=== PATIENT | male | born 1980 | race Hispanic/Latino ===

== ENCOUNTER 2016-12-31 17:55 | Emergency (ER) | payer SELFPAY ==
[~2016-12-31] VITALS: Ht 157.5 cm; Wt 81.9 kg
[~2016-12-31 17:55] MED LIST: AMOX500C2 PO; CEPH500C PO; CIPR500T78 PO; CPR500T PO; HYDR-3816 PO; HYDR1TAB PO; HYDR1TAB8 OP; HYOS0.3710 PO; IBUP-1780 PO; LORA10TA7 PO; METR500T PO; NAPR250T PO; OLOP2.5D OP; PRD20T PO; RABE20TA PO; TRM50T PO
[2016-12-31] MEDS ORDERED: RX-NITROGLYCERIN 0.4 MG TAB BTL 25'S SL PRN (18:15)
[2016-12-31] MEDS ORDERED: KETOROLAC 30 MG/ML VIAL IVP ONE (18:15)
[2016-12-31] MEDS ORDERED: NITROGLYCERIN 2% OINT 1 GM UNIT DOSE PACKET TOP ONE (18:15)
[2016-12-31] MEDS ORDERED: ASPIRIN 81 MG CHEW (CHILDREN'S ASA) PO ONE (18:15)
[2016-12-31 18:20] LABS: BASOPHILS # (AUTO) 0.1 10^3/uL (0.0-0.1); BASOPHILS % (AUTO) 0 % (0-10); EOSINOPHILS # (AUTO) 0.3 10^3/uL (0.0-0.3); EOSINOPHILS % (AUTO) 2 % (0-10); LYMPHOCYTES # (AUTO) 3.4 X 10^3 (1.0-4.0); LYMPHOCYTES % (AUTO) 28 % (12-44); MEAN CORPUSCULAR HEMOGLOBIN 31 PG (25-34); MEAN CORPUSCULAR HGB CONC 35 G/DL (32-36); MEAN CORPUSCULAR VOLUME 88 FL (80-99); MEAN PLATELET VOLUME 9.8 FL (7.4-10.4); MONOCYTES % (AUTO) 8 % (0-12); NEUTROPHILS # (AUTO) 7.4 X 10^3 (1.8-7.8); NEUTROPHILS % (AUTO) 61 % (42-75); PLATELET COUNT 360 10^3/uL (130-400); RED BLOOD COUNT 5.12 10^6/uL (4.35-5.85); RED CELL DISTRIBUTION WIDTH 12.3 % (10.0-14.5); WHITE BLOOD COUNT 12.1 10^3/uL (4.3-11.0)
--- NOTE | 2016-12-31 18:31 | ED Chest Pain ---
General Chief Complaint: Chest Pain Stated Complaint: L SIDE CHEST PAIN Nursing Triage Note: C/O CHEST PAIN STARTING 3 HOURS [employer], PATIENT REPORTS WAS SITTING DOWN WHEN STARTING. DENIES N/V/D OR SOA. 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 AND PT FIXATED ON PT'S "BACK PAIN' THAT HAS BEEN GOING ON FOR OVER A MONTH , HOWEVER BEGAN WHILE SITTING WORKED ALL DAY AND DID NOT HAVE ANY PROBLEMS NO INJURY NOTHING WORSENS OR IMPROVES PAIN NO SHORTNESS OF BREATH NO SWEATS NO SWELLING IN LEGS/FEET OR PAIN IN CALVES NO NAUSEA/VOMITING NO PARESTHESIAS OR MOTOR DEFICITS NO COUGH, FEVER OR RECENT ILLNESS NO HISTORY OF SIMILAR HAS NOT TAKEN ANYTHING FOR PAIN AT ANY TIME PCP: [facility] [place] Allergies and Home Medications Allergies Coded Allergies: No Known Drug Allergies (Unverified , 04/20/09) Home Medications Meloxicam 15 Mg Tablet, 15 MG PO DAILY, #10 Prescribed by: DANIELLA DENT on 12/31/161951 Review of Systems Constitutional: no symptoms reported EENTM: No Symptoms Reported Respiratory: No Symptoms Reported Cardiovascular: See HPI, Chest Pain, Denies Edema, Denies Irregular Heart Rate , Denies Lightheadedness, Denies Palpitations, Denies Syncope Gastrointestinal: No Symptoms Reported, Denies Abdominal Pain, Denies Nausea, Denies Vomiting Genitourinary: No Symptoms Reported Musculoskeletal: see HPI Skin: no symptoms reported, No rash Psychiatric/Neurological: No Symptoms Reported Endocrine: No Symptoms Reported Hematologic/Lymphatic: No Symptoms Reported Past Odxytas-Scpfls-Kdohxv Hx Patient Social History Alcohol Use: Regular Use (ON WEEKENDS) Alcohol Beverage of Choice: Beer Recreational Drug Use: No Smoking Status: Never a Smoker Recent Foreign Travel: No Contact w/Someone Who Travel: No Recent Infectious Disease Expo: No Recent Hopitalizations: No Seasonal Allergies Seasonal Allergies: No Surgeries History of Surgeries: Yes (COLONOSCOPIES) Respiratory History of Respiratory Disorde: No Cardiovascular History of Cardiac Disorders: No Neurological History of Neurological Disord: No Reproductive System Hx Reproductive Disorders: No Gastrointestinal History of Gastrointestinal Di: Yes (DIVERTICULITIS SEVERAL TIMES, WITH MICROPERFORATION--NO SURGERY REQUIRED; H.PYLORI--DX/TX 09/2009) Gastrointestinal Disorders: Diverticulosis Musculoskeletal History of Musculoskeletal Dis: No Endocrine History of Endocrine Disorders: No Cancer History of Cancer: No Psychosocial History of Psychiatric Problem: No Integumentary History of Skin or Integumenta: Yes (ALLERGY TO POISON MAYA) Blood Transfusions History of Blood Disorders: No Adverse Reaction to a Blood Tr: No Family Medical History Significant Family History: No Pertinent Family Hx Family Medial History: Patient reports no known family medical history. Physical Exam Vital Signs Vital Sign - Last 12Hours 12/31/16 12/31/16 18:01 20:11 Temp 98.2 Pulse 98 Resp 18 B/P (MAP) 165/115 Pulse Ox 99 O2 Delivery Room Air Capillary Refill : Less Than 3 Seconds General Appearance: WD/WN, Anxious, Other (ANXIOUS,MILD HYPERVENTILATION, KEEPS EYES TIGHTLY SHUT,CLENCHING TEETH--DOES NOT MAKE EYE CONTACT) HEENT: PERRL/EOMI Neck: Full Range of Motion, Normal Inspection, Non Tender, Supple Respiratory: Normal Breath Sounds, No Accessory Muscle Use, No Respiratory Distress, Other (MARKED CHEST WALL TENDERNESS--ENTIRE LEFT ANTERIOR CHEST, LEFT LATERAL AND POSTERIOR-LOWER RIBS--PALPATION DRAMATICALLY REPRODUCES PAIN . ) Cardiovascular: Regular Rate, Rhythm, No Edema, No JVD, No Murmur, Normal Peripheral Pulses Gastrointestinal: Normal Bowel Sounds, No Organomegaly, No Pulsatile Mass, Non Tender, Soft, Other (NO FLANK TENDERNESS) Extremity: Normal Capillary Refill, Normal Inspection, Normal Range of Motion, Non Tender, No Calf Tenderness Neurologic/Psychiatric: Alert, Oriented x3, No Motor/Sensory Deficits, production generalist II- XII Norm as Tested Skin: Normal Color, Warm/Dry, No Rash Progress/Results/Core Measures Results/Orders Lab Results Laboratory Tests Test 12/31/16 18:05 12/31/16 19:55 Range/Units White Blood Count 12.1 H 4.3-11.0 10^3/uL Red Blood Count 5.12 4.35-5.85 10^6/uL Hemoglobin 15.6 13.3-17.7 G/DL Hematocrit 45 40-54 % Mean Corpuscular Volume 88 80-99 FL Mean Corpuscular Hemoglobin 31 25-34 PG Mean Corpuscular Hemoglobin Concent 35 32-36 G/DL Red Cell Distribution Width 12.3 10.0-14.5 % Platelet Count 360 130-400 10^3/uL Mean Platelet Volume 9.8 7.4-10.4 FL Neutrophils (%) (Auto) 61 42-75 % Lymphocytes (%) (Auto) 28 12-44 % Monocytes (%) (Auto) 8 0-12 % Eosinophils (%) (Auto) 2 0-10 % Basophils (%) (Auto) 0 0-10 % Neutrophils # (Auto) 7.4 1.8-7.8 X 10^3 Lymphocytes # (Auto) 3.4 1.0-4.0 X 10^3 Monocytes # (Auto) 1.0 0.0-1.0 X 10^3 Eosinophils # (Auto) 0.3 0.0-0.3 10^3/uL Basophils # (Auto) 0.1 0.0-0.1 10^3/uL Prothrombin Time 14.8 H 12.2-14.7 SEC INR Comment 1.2 0.8-1.4 Activated Partial Thromboplast Time 33 24-35 SEC Sodium Level 139 135-145 MMOL/L Potassium Level 3.3 L 3.6-5.0 MMOL/L Chloride Level 102 98-107 MMOL/L Carbon Dioxide Level 26 21-32 MMOL/L Anion Gap 11 5-14 MMOL/L Blood Urea Nitrogen 11 7-18 MG/DL Creatinine 0.84 0.60-1.30 MG/DL Estimat Glomerular Filtration Rate > 60 BUN/Creatinine Ratio 13 Glucose Level 96 70-105 MG/DL Calcium Level 9.4 8.5-10.1 MG/DL Magnesium Level 2.1 1.8-2.4 MG/DL Total Bilirubin 0.5 0.1-1.0 MG/DL Aspartate Amino Transf (AST/SGOT) 41 H 5-34 U/L Alanine Aminotransferase (ALT/SGPT) 77 H 0-55 U/L Alkaline Phosphatase 110 40-136 U/L Total Creatine Kinase 165 30-200 U/L Creatine Kinase MB 1.2 <6.6 NG/ML Troponin I < 0.30 <0.30 NG/ML B-Type Natriuretic Peptide < 10.0 <100.0 PG/ML Total Protein 7.9 6.4-8.2 GM/DL Albumin 4.6 H 3.2-4.5 GM/DL Amylase Level 47 25-125 U/L Lipase 16 8-78 U/L Urine Color YELLOW Urine Clarity CLEAR Urine pH 7 5-9 Urine Specific [place] 1.010 L 1.016-1.022 Urine Protein NEGATIVE NEGATIVE Urine Glucose (UA) NEGATIVE NEGATIVE Urine Ketones NEGATIVE NEGATIVE Urine Nitrite NEGATIVE NEGATIVE Urine Bilirubin NEGATIVE NEGATIVE Urine Urobilinogen NORMAL NORMAL MG/DL Urine Leukocyte Esterase NEGATIVE NEGATIVE Urine RBC (Auto) NEGATIVE NEGATIVE Urine RBC NONE /HPF Urine WBC NONE /HPF Urine Squamous Epithelial Cells RARE /HPF Urine Crystals NONE /LPF Urine Bacteria NEGATIVE /HPF Urine Casts NONE /LPF Urine Mucus NEGATIVE /LPF Urine Culture Indicated NO Urine Opiates Screen NEGATIVE NEGATIVE Urine Oxycodone Screen NEGATIVE NEGATIVE Urine Methadone Screen NEGATIVE NEGATIVE Urine Propoxyphene Screen NEGATIVE NEGATIVE Urine Barbiturates Screen NEGATIVE NEGATIVE Ur Tricyclic Antidepressants Screen NEGATIVE NEGATIVE Urine Phencyclidine Screen NEGATIVE NEGATIVE Urine Amphetamines Screen NEGATIVE NEGATIVE Urine Methamphetamines Screen NEGATIVE NEGATIVE Urine Benzodiazepines Screen NEGATIVE NEGATIVE Urine Cocaine Screen NEGATIVE NEGATIVE Urine Cannabinoids Screen NEGATIVE NEGATIVE My Orders Orders - DANIELLA DENT DO Amylase (12/31/16 18:01) Cbc With Automated Diff (12/31/16 18:) Comprehensive Metabolic Panel (12/31/16 18:01) Creatine Kinase (12/31/16 18:01) Creatine Kinase Mb (12/31/16 18:01) Lipase (12/31/16 18:01) Partial Thromboplastin Time (12/31/16 18:) Protime With Inr (12/31/16 18:01) Troponin I (12/31/16 18:01) Chest 1 View, Ap/Pa Only (12/31/16 18:01) O2 (12/31/16 18:01) Aspirin Chewable Tablet (Baby Aspirin Ch (12/31/16 18:15) Rx-Nitroglycerin Sl Tabs (Rx-Nitrostat S (12/31/16 18:15) BNP (12/31/16 18:01) Monitor-Rhythm Ecg Trace Only (12/31/16 18:) Magnesium (12/31/16 18:01) Nitroglycerin Ointment (Nitrobid Ointme (12/31/16 18:15) Ketorolac Injection (Toradol Injection) (12/31/16 18:15) Ct Angio Chest W (12/31/16 18:53) Iohexol Injection (Omnipaque 350 Mg/Ml 1 (12/31/16 19:00) Ns (Ivpb) (Sodium Chloride 0.9% Ivpb Bag (12/31/16 19:00) Hepatitis Panel Acute (12/31/16 19:10) Drug Screen Stat (Urine) (12/31/16 19:55) Ua Culture If Indicated (12/31/16 19:55) Medications Given in ED Current Medications Medications Dose Ordered Sig/Asmita Route Start Time Stop Time Status Last Admin Dose Admin Aspirin 324 mg ONCE ONCE PO 12/31/16 18:15 12/31/16 18:16 DC 12/31/16 18:19 324 MG Iohexol 150 ml ONCE ONCE IV 12/31/16 19:00 12/31/16 19:03 DC 12/31/16 19:13 125 ML Ketorolac Tromethamine 30 mg ONCE ONCE IVP 12/31/16 18:15 12/31/16 18:16 DC 12/31/16 18:19 30 MG Sodium Chloride 100 ml ONCE ONCE IV 12/31/16 19:00 12/31/16 19:03 DC 12/31/16 19:13 100 ML Vital Signs/I&O Vital Sign - Last 12Hours 12/31/16 12/31/16 12/31/16 18:01 20:11 20:25 Temp 98.2 Pulse 98 75 Resp 18 14 B/P (MAP) 165/115 Pulse Ox 99 99 O2 Delivery Room Air Blood Pressure Mean: 132 Progress Note : Progress Note BP DOWN TO 140/90'S SHORTLY AFTER ARRIVAL WITHOUT TREATMENT, SO NITROPASTE HELD GIVEN TORADOL AND CHEST PAIN HAS RESOLVED PT SLEPT FOR REMAINDER OF ER STAY 1954--REVIEWING ALL TEST RESULTS, AND PT'S STATES HIS PAIN IS GONE BUT NOW WANTS URINE CHECKED FOR UTI--STATES WHEN HE DRINKS WATER, IT MAKES HIM FEEL LIKE HE HAS A UTI--CANNOT DESCRIBE SYMPTOMS. WAS UNABLE TO GIVE URINE SAMPLE ON ARRIVAL, WILLING TO GIVE ONE NOW. ECG Initial ECG Impression Time: 17:58 Initial ECG Rate: 98 Initial ECG Rhythm: Normal Sinus Initial ECG Comparisson: No Previous ECG Available Diagnostic Imaging Comments CXR--NO ACUTE PROCESS CT CHEST ANGIOGRAM--NO ACUTE PROCESS PER RADIOLOGIST REPORTS @ 1949 Reviewed: Reviewed by Me Departure Impression Impression: Primary Impression: Chest wall pain Additional Impression: Labile hypertension Disposition: HOME, SELF-CARE Condition: Improved Departure-Patient Inst. Referrals: [facility] Patient Instructions: Chest Pain (DC), Chest Pain That Is Not Caused by the Heart (DC), Controlling Your Blood Pressure Through Lifestyle, Costochondritis ( DC), DASH Diet, Heart Healthy Diet, High Blood Pressure (DC) Add. Discharge Instructions: HOME [facility] FOR FURTHER CARE RETURN TO ER IF SYMPTOMS WORSEN All discharge instructions reviewed with patient and/or family. Voiced understanding. Scripts Meloxicam (Mobic) 15 Mg Tablet 15 MG PO DAILY, #10 TAB Prov: DANIELLA DENT DO 12/31/16 Images Torso/Trunk 1 - Severe, Tenderness 2 - Severe, Tenderness DANIELLA DENT DO Dec 31, 2016 18:31
[2016-12-31 18:32] LABS: INR 1.2 (0.8-1.4); PROTHROMBIN TIME PATIENT 14.8 SEC (12.2-14.7)
[2016-12-31 18:42] LABS: ALANINE AMINOTRANSFERASE 77 U/L (0-55); ALBUMIN 4.6 GM/DL (3.2-4.5); AMYLASE 47 U/L (25-125); ANION GAP 11 MMOL/L (5-14); ASPARTATE AMINO TRANSFERASE 41 U/L (5-34); BILIRUBIN,TOTAL 0.5 MG/DL (0.1-1.0); BLOOD UREA NITROGEN 11 MG/DL (7-18); BUN/CREATININE RATIO 13; CALCIUM 9.4 MG/DL (8.5-10.1); CARBON DIOXIDE 26 MMOL/L (21-32); CHLORIDE 102 MMOL/L (98-107); CREATINE KINASE 165 U/L (30-200); CREATININE SERUM 0.84 MG/DL (0.60-1.30); GFR ESTIMATED > 60; GLUCOSE 96 MG/DL (70-105); LIPASE 16 U/L (8-78); MAGNESIUM 2.1 MG/DL (1.8-2.4); POTASSIUM 3.3 MMOL/L (3.6-5.0); SODIUM 139 MMOL/L (135-145); TOTAL PROTEIN 7.9 GM/DL (6.4-8.2)
[2016-12-31 18:48] LABS: TROPONIN I < 0.30 NG/ML (<0.30)
--- NOTE | 2016-12-31 18:53 | Diagnostic Imaging Report ---
INDICATION: Chest pain, hypertension. COMPARISON: 12/06/2015. FINDINGS: Single view chest demonstrates clear lungs bilaterally. The heart is normal. No pneumothorax. Osseous structures normal. IMPRESSION: Negative chest. Dictated by: Dictated on workstation # [id number]
[2016-12-31] MEDS ORDERED: IOHEXOL 350 MG/ML 150 ML (OMNIPAQUE 350) VIAL IV ONE (19:00)
[2016-12-31] MEDS ORDERED: NS 100 ML (IVPB) BAG IV ONE (19:00)
--- NOTE | 2016-12-31 19:32 | Diagnostic Imaging Report ---
PROCEDURE: CT angiography of the chest with contrast. TECHNIQUE: Multiple contiguous axial images were obtained through the chest after uneventful bolus administration of intravenous contrast. Reconstructed CTA MIP acquisitions were also performed. INDICATION: Left-sided chest pain. COMPARISON: None. FINDINGS: The heart and aorta are normal. There is no pulmonary embolism. No aortic dissection or aneurysm is seen. The lungs are clear. No pneumothorax, effusion or infiltrate is identified. There is no lymphadenopathy. No pleural or pericardial effusion is present. Osseous structures are age-appropriate. IMPRESSION: Negative CT angio chest. Dictated by: Dictated on workstation # [id number]
[2016-12-31] MEDS ORDERED: MELO15TA14 PO (19:52)
[2016-12-31 20:06] LABS: BILIRUBIN,URINE NEGATIVE (NEGATIVE); KETONES,URINE NEGATIVE (NEGATIVE); LEUKOCYTE ESTERASE ,URINE NEGATIVE (NEGATIVE); NITRITE,URINE NEGATIVE (NEGATIVE); PH,URINE 7 (5-9); PROTEIN,URINE NEGATIVE (NEGATIVE); UROBILINOGEN,URINE NORMAL (NORMAL)
[2016-12-31 20:15] LABS: SQUAMOUS EPITHELIAL CELL,UR RARE /HPF
[2016-12-31 20:25] VITALS: BP 137/96
== END 2016-12-31 20:27 | disposition home or self-care (01) ==
LOC: EDUNIT# 17:55 → ER 17:57
DX: R07.89 Other chest pain (principal); R03.0 Elevated blood-pressure reading, without diagnosis of hypertension; Z87.19 Personal history of other diseases of the digestive system
CPT/HCPCS: 36415; 71010; 71275; 80053; 80074; 80306; 81000; 82150; 82550; 82553; 83690; 83735; 83880; 84484; 85025; 85610; 85730; 93005; 93041

== ENCOUNTER 2018-11-14 00:08 | Inpatient (IN) | payer SELFPAY ==
--- NOTE | 2018-11-13 22:25 | NUR ---
Dr. Floyd notified that morphine caused patient to have severe headache and did not want to take it again. New order rec to discontinue and continue with Fentanyl for pain management.
[2018-11-14] VITALS (7 sets, daily range): BP systolic 117–138; BP diastolic 73–78
[~2018-11-14] VITALS: Ht 170.2 cm; Wt 76.5 kg
[~2018-11-14 00:08] MED LIST changes: +HYDR-34 PO; -HYDR-3816 PO; +MELO15TA14 PO
[2018-11-14] MEDS ORDERED: NS IV 1000 ML 1,000 ML IV STA (00:37)
[2018-11-14] MEDS ORDERED: fentaNYL INJECTION 100 MCG/2 ML AMP IVP STA (00:37)
[2018-11-14] MEDS ORDERED: KETOROLAC 30 MG/ML VIAL IVP STA (00:37)
[2018-11-14 00:45] LABS: BASOPHILS % (AUTO) 0 % (0-10); EOSINOPHILS # (AUTO) 0.1 10^3/uL (0.0-0.3); EOSINOPHILS % (AUTO) 0 % (0-10); HEMATOCRIT 44 % (40-54); HEMOGLOBIN 15.4 G/DL (13.3-17.7); LYMPHOCYTES # (AUTO) 1.5 X 10^3 (1.0-4.0); LYMPHOCYTES % (AUTO) 9 % (12-44); MEAN CORPUSCULAR HEMOGLOBIN 30 PG (25-34); MEAN CORPUSCULAR HGB CONC 35 G/DL (32-36); MEAN CORPUSCULAR VOLUME 87 FL (80-99); MEAN PLATELET VOLUME 10.5 FL (7.4-10.4); MONOCYTES # (AUTO) 1.4 X 10^3 (0.0-1.0); MONOCYTES % (AUTO) 9 % (0-12); NEUTROPHILS % (AUTO) 82 % (42-75); PLATELET COUNT 272 10^3/uL (130-400); WHITE BLOOD COUNT 15.9 10^3/uL (4.3-11.0)
[2018-11-14] MEDS ORDERED: ONDANSETRON 4 MG/2 ML (SDV) Z0FRAN IVP ONE (00:45)
[2018-11-14 00:56] LABS: ALANINE AMINOTRANSFERASE 35 U/L (0-55); ALBUMIN 4.5 GM/DL (3.2-4.5); ALKALINE PHOSPHATASE 90 U/L (40-136); BILIRUBIN,TOTAL 0.8 MG/DL (0.1-1.0); BUN/CREATININE RATIO 13; CALCIUM 9.4 MG/DL (8.5-10.1); CARBON DIOXIDE 20 MMOL/L (21-32); CHLORIDE 103 MMOL/L (98-107); CREATININE SERUM 0.77 MG/DL (0.60-1.30); GFR ESTIMATED > 60; GLUCOSE 118 MG/DL (70-105); MAGNESIUM 2.5 MG/DL (1.8-2.4); POTASSIUM 3.9 MMOL/L (3.6-5.0); SODIUM 135 MMOL/L (135-145); TOTAL PROTEIN 7.9 GM/DL (6.4-8.2)
--- NOTE | 2018-11-14 01:00 | ED Abdominal Pain ---
General Chief Complaint: Abdominal/GI Problems Stated Complaint: ABD PAIN Nursing Triage Note: Pt ambulates to ED RM 5 with complaints of suprapubic pain, tender to touch, that radiates to his right flank. Pt reports this started yesterday 11/12/18 and hasn't taken any meds to relieve the pain prior to arrival. Pt reports nausea but denies vomiting. Pt states he hasn't been able to urinate or have a BM today because "it's too painful". Pt denies any past medical Hx other than having a colon issue 4 years ago. Sepsis Screen: No Definite Risk Source of Information: Patient Exam Limitations: No Limitations History of Present Illness Date Seen by Provider: Nov 14, 2018 Time Seen by Provider: 00:30 Initial Comments Here with complaint of lower abdominal pain that started yesterday. States that it was on and off and today has been much worse and quite severe this evening. Does have history of diverticulitis. Last ate at 3 PM and drink a little of that time. Otherwise has not had anything to eat or drink. Has not been unable to have a bowel movement or urinate recently because of the pain. Hospitalized previously for diverticulitis. Timing/Duration: 1-2 Days Severity/Quality: Moderate, Severe, Sharp Location: RLQ, LLQ Radiation: Back Activities at Onset: None Modifying Factors: Worsens With Defecating, Worsens With Eating, Worsens With Movement Associated Symptoms: Back Pain; No Fever/Chills, No Nausea/Vomiting, No Shortness of Air, No Weakness Allergies and Home Medications Allergies Coded Allergies: No Known Drug Allergies (Unverified , 04/20/09) Home Medications Meloxicam 15 Mg Tablet, 15 MG PO DAILY Prescribed by: DANIELLA DENT on 12/31/161951 Patient Home Medication List Home Medication List Reviewed: Yes Review of Systems Review of Systems Constitutional: see HPI; No chills, No fever EENTM: No Symptoms Reported Respiratory: No Symptoms Reported Cardiovascular: No Symptoms Reported Gastrointestinal: See HPI, Abdominal Pain, Nausea; Denies Vomiting Genitourinary: Denies Frequency; Pain Musculoskeletal: back pain; No muscle pain Skin: no symptoms reported Psychiatric/Neurological: No Symptoms Reported All Other Systems Reviewed Negative Unless Noted: Yes Past Dinyhoa-Bxwfaa-Eolpow Hx Past Med/Social Hx: Reviewed Nursing Past Med/Soc Hx Patient Social History Alcohol Use: Denies Use Alcohol Beverage of Choice: Beer Recreational Drug Use: No Smoking Status: Never a Smoker Recent Foreign Travel: No Contact w/Someone Who Travel: No Recent Infectious Disease Expo: No Recent Hopitalizations: No Physical Abuse: No Sexual Abuse: No Mistreated: No Fear: No Seasonal Allergies Seasonal Allergies: No Past Medical History Surgeries: Yes (COLONOSCOPIES) Respiratory: No Cardiac: No Neurological: No Reproductive Disorders: No Genitourinary: No Gastrointestinal: Yes Diverticulosis Musculoskeletal: No Endocrine: No HEENT: No Cancer: No Psychosocial: No Integumentary: Yes (ALLERGY TO POISON MAYA) Blood Disorders: No Adverse Reaction/Blood Tranf: No Family Medical History Reviewed Nursing Family Hx Patient reports no known family medical history. No Pertinent Family Hx Physical Exam Vital Signs Vital Signs - First Documented 11/14/18 00:12 Temp 99.3 Pulse 107 Resp 20 B/P (MAP) 145/95 (112) Pulse Ox 97 O2 Delivery Room Air Capillary Refill : Less Than 3 Seconds Height/Weight/BMI Height: 5'8.00" Weight: 190lbs. 8.0oz. 86.447632xh; 32.92 BMI Method:Stated General Appearance: WD/WN, no apparent distress HEENT: PERRL/EOMI, pharynx normal Neck: full range of motion, supple Respiratory: lungs clear, normal breath sounds Cardiovascular: regular rate, rhythm, no murmur Gastrointestinal: abnormal bowel sounds (hypoactive), guarding, tenderness (bilateral lower quadrants) Extremities: non-tender, normal inspection Back: no CVA tenderness, no vertebral tenderness, other (low back pain bilateral) Neurologic/Psychiatric: alert, oriented x 3 Skin: normal color, warm/dry Progress/Results/Core Measures Results/Orders Lab Results Laboratory Tests Test 11/14/18 00:14 11/14/18 02:15 Range/Units White Blood Count 15.9 H 4.3-11.0 10^3/uL Red Blood Count 5.08 4.35-5.85 10^6/uL Hemoglobin 15.4 13.3-17.7 G/DL Hematocrit 44 40-54 % Mean Corpuscular Volume 87 80-99 FL Mean Corpuscular Hemoglobin 30 25-34 PG Mean Corpuscular Hemoglobin Concent 35 32-36 G/DL Red Cell Distribution Width 12.0 10.0-14.5 % Platelet Count 272 130-400 10^3/uL Mean Platelet Volume 10.5 H 7.4-10.4 FL Neutrophils (%) (Auto) 82 H 42-75 % Lymphocytes (%) (Auto) 9 L 12-44 % Monocytes (%) (Auto) 9 0-12 % Eosinophils (%) (Auto) 0 0-10 % Basophils (%) (Auto) 0 0-10 % Neutrophils # (Auto) 13.0 H 1.8-7.8 X 10^3 Lymphocytes # (Auto) 1.5 1.0-4.0 X 10^3 Monocytes # (Auto) 1.4 H 0.0-1.0 X 10^3 Eosinophils # (Auto) 0.1 0.0-0.3 10^3/uL Basophils # (Auto) 0.0 0.0-0.1 10^3/uL Sodium Level 135 135-145 MMOL/L Potassium Level 3.9 3.6-5.0 MMOL/L Chloride Level 103 98-107 MMOL/L Carbon Dioxide Level 20 L 21-32 MMOL/L Anion Gap 12 5-14 MMOL/L Blood Urea Nitrogen 10 7-18 MG/DL Creatinine 0.77 0.60-1.30 MG/DL Estimat Glomerular Filtration Rate > 60 BUN/Creatinine Ratio 13 Glucose Level 118 H 70-105 MG/DL Calcium Level 9.4 8.5-10.1 MG/DL Corrected Calcium 9.0 8.5-10.1 MG/DL Magnesium Level 2.5 H 1.8-2.4 MG/DL Total Bilirubin 0.8 0.1-1.0 MG/DL Aspartate Amino Transf (AST/SGOT) 22 5-34 U/L Alanine Aminotransferase (ALT/SGPT) 35 0-55 U/L Alkaline Phosphatase 90 40-136 U/L C-Reactive Protein High Sensitivity 1.38 H 0.00-0.50 MG/DL Total Protein 7.9 6.4-8.2 GM/DL Albumin 4.5 3.2-4.5 GM/DL Urine Color YELLOW Urine Clarity CLEAR Urine pH 7 5-9 Urine Specific [place] 1.005 L 1.016-1.022 Urine Protein NEGATIVE NEGATIVE Urine Glucose (UA) NEGATIVE NEGATIVE Urine Ketones NEGATIVE NEGATIVE Urine Nitrite NEGATIVE NEGATIVE Urine Bilirubin NEGATIVE NEGATIVE Urine Urobilinogen NORMAL NORMAL MG/DL Urine Leukocyte Esterase NEGATIVE NEGATIVE Urine RBC (Auto) NEGATIVE NEGATIVE Urine RBC NONE /HPF Urine WBC NONE /HPF Urine Squamous Epithelial Cells RARE /HPF Urine Crystals NONE /LPF Urine Bacteria TRACE /HPF Urine Casts NONE /LPF Urine Mucus NEGATIVE /LPF Urine Culture Indicated NO My Orders Orders - JOHN DURAND MD Fentanyl Injection (Sublimaze Injection (11/14/18 00:37) Ketorolac Injection (Toradol Injection) (11/14/18 00:37) Cbc With Automated Diff (11/14/18 00:37) Comprehensive Metabolic Panel (11/14/18 00:37) Hs C Reactive Protein (11/14/18 00:37) Magnesium (11/14/18 00:37) Ondansetron Injection (Zofran Injectio (11/14/18 00:45) Ns Iv 1000 Ml (Sodium Chloride 0.9%) (11/14/18 00:37) Ed Iv/Invasive Line Start (11/14/18 00:37) Manual Differential (11/14/18 00:14) Ct Abdomen/Pelvis W (11/14/18 01:37) Iohexol Injection (Omnipaque 350 Mg/Ml 1 (11/14/18 02:15) Received Contrast (Hold Metformin- Contr (11/14/18 02:15) Ns (Ivpb) (Sodium Chloride 0.9% Ivpb Bag (11/14/18 02:15) Ua Culture If Indicated (11/14/18 02:30) Medications Given in ED Current Medications Medications Dose Ordered Sig/Asmita Route Start Time Stop Time Status Last Admin Dose Admin Iohexol 100 ml ONCE ONCE IV 11/14/18 02:15 11/14/18 02:16 DC 11/14/18 02:11 100 ML Ondansetron HCl 4 mg ONCE ONCE IVP 11/14/18 00:45 11/14/18 00:46 DC 11/14/18 00:49 4 MG Sodium Chloride 100 ml ONCE ONCE IV 11/14/18 02:15 11/14/18 02:16 DC 11/14/18 02:11 80 ML Vital Signs/I&O 11/14/18 00:12 Temp 99.3 Pulse 107 Resp 20 B/P (MAP) 145/95 (112) Pulse Ox 97 O2 Delivery Room Air Blood Pressure Mean: 112 Progress Progress Note : Progress Note Seen and evaluated. IV, labs, UA, normal saline 1 L bolus, Zofran 4 mg IV, fentanyl 50 g IV and Toradol [address] abdomen and pelvis. Monitor patient. 0305: CT scan shows acute diverticulitis. Given patient's pain, elevated white count and history of diverticulitis requiring extended hospital stay, we will admit the patient to the hospital. Blood cultures and lactic acid ordered. Rocephin 1 g IV now and we will continue Rocephin and Flagyl. Consult Dr. Floyd the morning. Yoni concerns discussed with patient who agrees with plan. Diagnostic Imaging Diagonstic Imaging: CT Plain Films/CT/US/NM/MRI: abdomen, pelvis Comments Evidence of sigmoid diverticulitis. No abscess, perforation or bowel obstruction. No hydronephrosis or nephrolithiasis. Reviewed: [facility]ed [facility], Reviewed by Me Departure Communication (Admissions) Time/Spoke to Admitting Phy: 03:05 Impression Primary Impression: Diverticulitis of intestine Qualified Codes: K57.32 - Diverticulitis of large intestine without p erforation or abscess without bleeding Disposition: ADMITTED INPATIENT Condition: Stable Admissions Decision to Admit Reason: Admit from ER (General) Decision to Admit/Date: Nov 14, 2018 Time/Decision to Admit Time: 03:05 Departure-Patient Inst. Referrals: NO,LOCAL PHYSICIAN (PCP/Family) Primary Care Physician JOHN DURAND MD Nov 14, 2018 01:00
[2018-11-14] MEDS ORDERED: IOHEXOL 350 MG/ML 100 ML (OMNIPAQUE 350) VIAL IV ONE (02:15)
[2018-11-14] MEDS ORDERED: NS 100 ML (IVPB) BAG IV ONE (02:15)
[2018-11-14] MEDS ORDERED: HOLD METFORMIN - RECEIVED CONTRAST 20 ML VIAL IV SCH (02:15)
[2018-11-14 02:36] LABS: BILIRUBIN,URINE NEGATIVE (NEGATIVE); CLARITY,URINE CLEAR; COLOR,URINE YELLOW; GLUCOSE, URINE (UA) NEGATIVE (NEGATIVE); KETONES,URINE NEGATIVE (NEGATIVE); LEUKOCYTE ESTERASE ,URINE NEGATIVE (NEGATIVE); NITRITE,URINE NEGATIVE (NEGATIVE); PH,URINE 7 (5-9); PROTEIN,URINE NEGATIVE (NEGATIVE); UROBILINOGEN,URINE NORMAL (NORMAL)
[2018-11-14 02:45] LABS: BACTERIA,URINE TRACE /HPF; SQUAMOUS EPITHELIAL CELL,UR RARE /HPF
[2018-11-14] MEDS ORDERED: cefTRIAXone FOR IV USE 1,000 MG in WATER (STERILE) FOR INJECTION 10 ML IV ONE (03:15)
--- NOTE | 2018-11-14 04:02 | NUR ---
ANTIONE GARZA admitted to room 431-1, with an admitting diagnosis of DIVERTICULITIS , on 11/14/18 from ED via , accompanied by STAFF .ANTIONE GARZA introduced to surroundings, call light, bed controls, phone, TV, temperature control, lights, meal times, smoking policy, visitor policy, side rail policy, bathrooms and showers. Patient Rights given to patient in the handbook.ANTIONE GARZA verbalizes understanding that [facility] is not responsible for the loss or damage to any personal effects or valuables that are kept in the patients posession during their hospitalization.
[2018-11-14] MEDS ORDERED: NS IV 1000 ML 1,000 ML ONE (04:04)
[2018-11-14 04:24] LABS: LYMPHOCYTES % (MANUAL) 12 %; MONOCYTES % (MANUAL) 6 %; NEUTROPHILS % (MANUAL) 82 %
[2018-11-14] MEDS: NS IV 1000 ML 1,000 ML IV SCH ×4 (04:30→22:32)
[2018-11-14] MEDS ORDERED: ONDANSETRON 4 MG/2 ML (SDV) Z0FRAN IV PRN (05:30)
[2018-11-14] MEDS: metroNIDAZOLE 500 MG/100 ML IVPB (PRE-MIX) IV SCH ×3 (06:33→17:19)
--- NOTE | 2018-11-14 06:37 | Diagnostic Imaging Report ---
PROCEDURE: CT abdomen and pelvis with contrast. TECHNIQUE: Multiple contiguous axial images were obtained through the abdomen and pelvis after administration of intravenous contrast. Auto Exposure Controls were utilized during the CT exam to meet ALARA standards for radiation dose reduction. INDICATION: Flank pain. COMPARISON: 08/11/2013 FINDINGS: Mild subpleural scarring and/or atelectasis within the lung bases. The liver, spleen, adrenal glands, pancreas, and gallbladder are unremarkable. The kidneys are unremarkable. No aneurysmal dilatation of abdominal aorta. The urinary bladder is unremarkable. Significant mural thickening is noted within the proximal sigmoid colon with adjacent fat stranding. No adjacent focal fluid collection. Colonic diverticulosis. The appendix is unremarkable. No bowel obstruction or pneumatosis. Tiny fat-containing umbilical hernia. No significant adenopathy, free air, or free fluid within abdomen or pelvis. No acute osseous abnormality. IMPRESSION: Findings consistent with diverticulitis of the proximal sigmoid colon. No evidence of abscess formation or perforation. Underlying malignancy at this location cannot be completely excluded. Otherwise, essentially unremarkable. Agree with preliminary interpretation. Dictated by: Dictated on workstation # [id number]
[2018-11-14] MEDS: fentaNYL INJECTION 100 MCG/2 ML AMP IV PRN ×3 (06:55→20:14)
[2018-11-14] MEDS: KETOROLAC 30 MG/ML VIAL IV PRN ×2 (10:14→20:10)
--- NOTE | 2018-11-14 10:31 | Consultation - Surgery ---
MICHAEL NAM,MED STUDENT 11/14/18 1031: History of Present Illness History of Present Illness Patient Consulted On(wil/time) 11/14/18 10:26 Date Seen by Provider: Nov 14, 2018 Time Seen by Provider: 09:39 History of Present Illness Pt complains of LLQ pain beginning yesterday, likely secondary to diverticulitis as he has had this before. He complains of intermittent abdominal pain for 4-5 years now. Pain rated as 5/10 right now, and improves with pain medication. No family at bedside. Pt seen under supervision of Dr. Floyd Allergies and Home Medications Allergies Coded Allergies: No Known Drug Allergies (Unverified , 04/20/09) Home Medications No Active Prescriptions or Reported Meds Past Gvgxfyc-Mbcmfe-Eoxrye Hx Patient Social History Alcohol Use: Denies Use Recreational Drug Use: No Smoking Status: Never a Smoker Recent Foreign Travel: No Contact w/Someone Who Travel: No Recent Infectious Disease Expo: No Recent Hopitalizations: No Seasonal Allergies Seasonal Allergies: No Surgeries History of Surgeries: Yes (COLONOSCOPIES) Respiratory History of Respiratory Disorde: No Cardiovascular History of Cardiac Disorders: No Neurological History of Neurological Disord: No Reproductive System Hx Reproductive Disorders: No Genitourinary History of Genitourinary Disor: No Gastrointestinal History of Gastrointestinal Di: Yes Gastrointestinal Disorders: Diverticulosis Musculoskeletal History of Musculoskeletal Dis: No Endocrine History of Endocrine Disorders: No HEENT History of HEENT Disorders: No Cancer History of Cancer: No Psychosocial History of Psychiatric Problem: No Integumentary History of Skin or Integumenta: Yes (ALLERGY TO POISON MAYA) Blood Transfusions History of Blood Disorders: No Adverse Reaction to a Blood Tr: No Family Medical History Significant Family History: No Pertinent Family Hx Family Medial History: Patient reports no known family medical history. Review of Systems-General Constitutional: no symptoms reported Gastrointestinal: LLQ Physical Exam-General Problems Physical Exam Vital Signs Vital Signs - First Documented 11/14/18 00:12 Temp 99.3 Pulse 107 Resp 20 B/P (MAP) 145/95 (112) Pulse Ox 97 O2 Delivery Room Air Capillary Refill : Less Than 3 Seconds General Appearance: mild distress HEENT: PERRL/EOMI Respiratory: chest non-tender Cardiovascular: no edema Gastrointestinal: tenderness (LLQ tenderness to palpation) Neurologic/Psychiatric: alert Skin: warm/dry Data Review Labs Laboratory Tests 11/14/18 00:14: White Blood Count 15.9H, Red Blood Count 5.08, Hemoglobin 15.4, Hematocrit 44, Mean Corpuscular Volume 87, Mean Corpuscular Hemoglobin 30, Mean Corpuscular Hemoglobin Concent 35, Red Cell Distribution Width 12.0, Platelet Count 272, Mean Platelet Volume 10.5H, Neutrophils (%) (Auto) 82H, Lymphocytes (%) (Auto) 9L, Monocytes (%) (Auto) 9, Eosinophils (%) (Auto) 0, Basophils (%) (Auto) 0, Neutrophils # (Auto) 13.0H, Lymphocytes # (Auto) 1.5, Monocytes # (Auto) 1.4H, Eosinophils # (Auto) 0.1, Basophils # (Auto) 0.0, Neutrophils % (Manual) 82, Lymphocytes % (Manual) 12, Monocytes % (Manual) 6, Sodium Level 135, Potassium Level 3.9, Chloride Level 103, Carbon Dioxide Level 20L, Anion Gap 12, Blood Urea Nitrogen 10, Creatinine 0.77, Estimat Glomerular Filtration Rate > 60, BUN/Creatinine Ratio 13, Glucose Level 118H, Calcium Level 9.4, Corrected Calcium 9.0, Magnesium Level 2.5H, Total Bilirubin 0.8, Aspartate Amino Transf (AST/SGOT) 22, Alanine Aminotransferase (ALT/SGPT) 35, Alkaline Phosphatase 90, C-Reactive Protein High Sensitivity 1.38H, Total Protein 7.9, Albumin 4.5 11/14/18 02:15: Urine Color YELLOW, Urine Clarity CLEAR, Urine pH 7, Urine Specific [place] 1.005L, Urine Protein NEGATIVE, Urine Glucose (UA) NEGATIVE, Urine Ketones NEGATIVE, Urine Nitrite NEGATIVE, Urine Bilirubin NEGATIVE, Urine Urobilinogen NORMAL, Urine Leukocyte Esterase NEGATIVE, Urine RBC (Auto) NEGATIVE, Urine RBC NONE, Urine WBC NONE, Urine Squamous Epithelial Cells RARE, Urine Crystals NONE, Urine Bacteria TRACE, Urine Casts NONE, Urine Mucus NEGATIVE, Urine Culture Indicated NO 11/14/18 03:09: Lactic Acid Level 1.56 Assessment/Plan Assessment/Plan Assessment/Plan Diverticulitis. Continue clear liquid diet and antibiotics. Repeat labs. Recommend colonoscopy 6 weeks after diverticulitis resolves. No surgical intervention indicated at this time. Continue conservative management Diagnosis/Problems Diagnosis/Problems (1) Diverticulitis of intestine Status: Acute Qualifiers: Qualified Codes: K57.32 - Diverticulitis of large intestine without perforation or abscess without bleeding Clinical Quality Measures DVT/VTE Risk/Contraindication: Risk Factor Score Per Nursin RFS Level Per Nursing on Admit: 1=Low/No VTE PPX HEAVEN FLOYD DO 11/14/18 1507: History of Present Illness History of Present Illness History of Present Illness LLQ abd pain started yesterday. History of diverticulitis about 4-5 years ago. Patient pain worse with movement. Better with pain medication. Currently 08/22. Sharp in nature. No radiation of pain. Denies n/v fever sweats chills shortness of breath or chest pain at this time. Ct scan reviewed consistent with diverticulitis no perforation of sigmoid colon. Allergies and Home Medications Allergies Coded Allergies: No Known Drug Allergies (Unverified , 04/20/09) Home Medications No Active Prescriptions or Reported Meds Patient Home Medication List Home Medication List Reviewed: Yes Past Horkifw-Diynce-Xcyvyb Hx Family Medical History Family Medial History: Patient reports no known family medical history. Review of Systems-General EENTM: no symptoms reported Respiratory: no symptoms reported Cardiovascular: no symptoms reported Gastrointestinal: see HPI Genitourinary: no symptoms reported Musculoskeletal: no symptoms reported Skin: no symptoms reported Psychiatric/Neurological: No Symptoms Reported Physical Exam-General Problems Physical Exam General Appearance: no apparent distress HEENT: PERRL/EOMI Neck: non-tender, full range of motion, supple Respiratory: no respiratory distress, no accessory muscle use Cardiovascular: regular rate, rhythm Gastrointestinal: soft, tenderness (LLQ tenderness to palpation) Rectal: deferred Back: no CVA tenderness, no vertebral tenderness Extremities: non-tender, normal inspection Neurologic/Psychiatric: cvicu rn II-XII nml as tested, no motor/sensory deficits, alert, normal mood/affect, oriented x 3 Skin: warm/dry Lymphatic: no adenopathy Assessment/Plan Assessment/Plan Assessment/Plan LLq abdominal pain Diverticulitis Leukocytosis IV ABX Clear liquids repeat labs in am conservative management colonoscopy as above Supervisory-Addendum Brief Verification & Attestation Time: Verification & Attestat.: 15:08 Participated in pt care: history, MDM, physical Personally performed: exam, history, MDM, supervision of care Care discussed with: Medical Student Procedures: n/a Results interpretation: Verified all documentation Verification and Attestation of Medical Student E/M Service A medical student performed and documented this service in my presence. I reviewed and verified all information documented by the medical student and made modifications to such information, when appropriate. I personally performed the physical exam and medical decision making. Heaven Floyd, Nov 14, 2018,15:08 MICHAEL NAM,MED STUDENT Nov 14, 2018 10:31 HEAVEN FLOYD DO Nov 14, 2018 15:07
--- NOTE | 2018-11-14 12:08 | History & Physical-Hospitalist ---
HERNANDO HUNT,MED STUDENT 11/14/18 12:07pm: History of Present Illness HPI/Chief Complaint Patient is a 38 y/o HM that presented to the ER with abdominal pain and nausea. Pain is described as sharp and with onset yesterday afternoon and localized to LLQ and LRQ with no radiation. Pain improves with rest and pain medication and is made worse by movement and compression. Pain was rated was 10/10 but has improved to 1/10 with pain meds. Pt also complains of lower back pain that improves with rest and dysuria. Previous history of diverticulitis treated 5yrs ago at [facility] Date Seen 11/14/18 Time Seen by a Provider: 13:38 Attending Physician Sanju Caballero MD PCP No,Local Physician Referring Physician Date of Admission Nov 14, 2018 at 03:08 Home Medications & Allergies Home Medications Reviewed patient Home Medication Reconciliation performed by pharmacy medication reconciliations auto glass technician and/or nursing. Patients Allergies have been reviewed. Allergies Allergies Coded Allergies No Known Drug Allergies (Unverified04/20/09) Past Ctnchfw-Hpgjet-Poxxrs Hx Past Med/Social Hx: Reviewed Nursing Past Med/Soc Hx Patient Social History Marrital Status: Number of Children: 1 Number of living children: 1 Living Status: rental property Employed/Student: self-employed Alcohol Use: Past History Alcohol Beverage of Choice: Beer, Cheap Liquor Recreational Drug Use: No Smoking Status: Never a Smoker Recent Foreign Travel: No Contact w/other who traveled: No Recent Hopitalizations: No Recent Infectious Disease Expo: No Immunizations Up To Date Tetanus Booster (TDap): Unknown Pediatric: No Seasonal Allergies Seasonal Allergies: Yes Past Medical History Coloscopies Currently Using CPAP: No Currently Using BIPAP: No Reproductive: No Gastrointestinal: Diverticulosis Are Your Blood Sugars Over 250: No History of Blood Disorders: No Adverse Reaction to Blood Galdamez: No Family History Reviewed Nursing Family Hx Patient reports no known family medical history. No Pertinent Family Hx Review of Systems Constitutional: fever Gastrointestinal: RLQ, LLQ, abdominal pain (LLQ), constipation, diarrhea; No loss of appetite; nausea; No vomiting Genitourinary: dysuria Musculoskeletal: back pain Physical Exam Physical Exam Vital Signs Vital Signs - First Documented 11/14/18 00:12 Temp 99.3 Pulse 107 Resp 20 B/P (MAP) 145/95 (112) Pulse Ox 97 O2 Delivery Room Air Capillary Refill : Less Than 3 Seconds Height, Weight, BMI Height: 5'7.00" Weight: 306lbs. 5.0oz. [id number]; 32.92 BMI Method:Stated General Appearance: No Apparent Distress, WD/WN Neck: Normal Inspection, Non Tender, Supple Respiratory: Chest Non Tender, Lungs Clear, Normal Breath Sounds, No Accessory Muscle Use, No Respiratory Distress Cardiovascular: Regular Rate, Rhythm, No Edema, No Gallop, No JVD, No Murmur, Normal Peripheral Pulses Gastrointestinal: Normal Bowel Sounds, No Organomegaly, No Pulsatile Mass, Guarding, Rebound, Tenderness Back: Normal Inspection, CVA Tenderness (L), CVA Tenderness (R) Extremity: Normal Inspection, Non Tender, No Calf Tenderness, No Pedal Edema Neurologic/Psychiatric: Alert Skin: Normal Color, Warm/Dry Results Results/Procedures Labs Laboratory Tests 11/14/18 00:14 Patient resulted labs reviewed. Assessment/Plan Admission Diagnosis Diverticulitis Admission Status: Observation Assessment and Plan Diverticulitis * NS * metronidazole * ceftriaxone * Toradol & Fentanyl for pain * surg consult * Clear liquid diet Dysuria * UA was negative * monitor * consider GC and Chlamydia Clinical Quality Measures DVT/VTE Risk/Contraindication: Risk Factor Score Per Nursin RFS Level Per Nursing on Admit: 1=Low/No VTE PPX MAX GODYO MD 11/14/18 1:04pm: Past Gqpmjkq-Gjwblk-Lbsdji Hx Family History Patient reports no known family medical history. Diagnosis/Problems Diagnosis/Problems (1) Dysuria (2) Diverticulitis of intestine Status: Acute Qualifiers: Diverticulitis site: large intestine Diverticulitis bleeding: without bleeding Diverticulitis complication: without perforation or abscess Qualifi ed Codes: K57.32 - Diverticulitis of large intestine without perforation or abscess without bleeding Supervisory-Addendum Brief Verification & Attestation Time: Verification & Attestat.: 13:01 Participated in pt care: history, MDM, physical Personally performed: exam, history, MDM, supervision of care Care discussed with: Medical Student Procedures: n/a Results interpretation: Verified all documentation History of present illness:Patient is a 38-year-old male with a past medical history of diverticulitis who presented to the emergency department with chief complaint of lower abdominal pain. He states it started acutely yesterday without any precipitating factors. It feels similar to his previous episode of diverticulitis. He does complain of some nausea but no vomiting. He reports constipation 24 hours. He also complains of dysuria and back pain. CT abdomen was done which revealed acute diverticulitis. He was admitted for IV antibiotics and pain control. A/P: Diverticulitis Dysuria with negative UA Plan: Continue Rocephin and Flagyl Clear liquid diet Surgery consultation, appreciate recommendations Discussed with Dr. Floyd this morning Toradol and fentanyl for pain HERNANDO HUNT,MED STUDENT Nov 14, 2018 12:07 pm MAX GODOY MD Nov 14, 2018 1:04 pm
--- NOTE | 2018-11-14 12:25 | NUR ---
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 She shared that 4 months ago his left him after he met up with another woman. He said she had been seeing other men, and he feels he made a great mistake. He is not in a relationship, has children at home and is unemployed. He expressed feeling that his actions caused his world to fall apart, and he is trying to put his life back together. The pt said he is taking his children to [place], and "trying to teach them to live and good life and learn from my mistake." He said his is currently in [place] with another man, and she has not demonstrated willingness to repair their relationship. He was tearful and thanked me for listening to him without judgment. Addendum: 11/14/18 at 1246 by PRAVEEN BULL PAST Correction: "He shared that 4 months ago his left him"
--- NOTE | 2018-11-14 16:31 | NUR ---
Dr. Aguero notified of patient's temp of 101, received order for Tylenol 500mg every 4 hours as needed
[2018-11-14] MEDS: ACETAMINOPHEN 500 MG TAB (TYLENOL) PO PRN ×2 (16:53→22:19)
--- NOTE | 2018-11-14 22:00 | NUR ---
Dr. Aguero notified of pain unrelieved by Toradol or Fentanyl. New order rec for Morphine Sulfate 2mg IV q 2 hr PRN. Also instructed to let Dr. Floyd know about the increased pain.
--- NOTE | 2018-11-14 22:05 | NUR ---
Dr. Floyd notified (as requested by Dr. Aguero) of pain unrelieved by toradol and fentanyl. New order rec to change Morphine Sulfate to 2-4mg IV q 2 hr prn pain; diet change to NPO, increase IVF to 150 mls/hr through the night (x 2 bags) and decrease back to 125 mls/hr in am. Will continue to monitor.
[2018-11-14] MEDS ORDERED: morphine INJ 4 MG/ML 1 ML (VIAL/SYRINGE) IVP PRN (22:15)
[2018-11-15] MEDS: metroNIDAZOLE 500 MG/100 ML IVPB (PRE-MIX) IV SCH ×5 (00:24→23:46)
[2018-11-15 00:26] VITALS: BP 118/73
[2018-11-15] MEDS: cefTRIAXone 1,000 MG/SWFI 10 ML IV PUSH IV SCH ×2 (02:24)
[2018-11-15 04:16] VITALS: BP 123/78
[2018-11-15 05:34] LABS: HEMOGLOBIN 13.6 G/DL (13.3-17.7); MEAN PLATELET VOLUME 9.9 FL (7.4-10.4); RED CELL DISTRIBUTION WIDTH 12.3 % (10.0-14.5); WHITE BLOOD COUNT 13.8 10^3/uL (4.3-11.0)
[2018-11-15] MEDS: NS IV 1000 ML 1,000 ML IV SCH ×4 (05:38→23:46)
[2018-11-15] MEDS: ACETAMINOPHEN 500 MG TAB (TYLENOL) PO PRN (05:45)
[2018-11-15] MEDS: fentaNYL INJECTION 100 MCG/2 ML AMP IV PRN ×2 (05:46→11:41)
[2018-11-15] MEDS: KETOROLAC 30 MG/ML VIAL IV PRN ×3 (05:46→21:33)
[2018-11-15 05:52] LABS: BUN/CREATININE RATIO 14; CALCIUM 8.6 MG/DL (8.5-10.1); CARBON DIOXIDE 20 MMOL/L (21-32); CHLORIDE 106 MMOL/L (98-107); CREATININE SERUM 0.71 MG/DL (0.60-1.30); GFR ESTIMATED > 60; GLUCOSE 85 MG/DL (70-105); MAGNESIUM 2.2 MG/DL (1.8-2.4); POTASSIUM 3.6 MMOL/L (3.6-5.0); SODIUM 137 MMOL/L (135-145)
--- NOTE | 2018-11-15 08:03 | Progress Note - Hospitalist ---
HERNANDO HUNT,MED STUDENT 11/15/18 8:03am: Subjective HPI/CC On Admission Date Seen by Provider: Nov 15, 2018 Lower abodominal pain LLQ > RLQ Subjective/Events-last exam Ate dinner last night. Had abdominal pain last night that did not respond to original pain meds given earlier in the day. Was given a different pain med (morphine) that gave him a headache. Pain improved later in the night/toy consultant when given Fentanyl. Pt says that it still hurts when he voids but the pain is less than before Focused Exam Lactate Level 11/14/18 03:09: Lactic Acid Level 1.56 Objective Exam Vital Signs Vital Signs Date Time Temp Pulse Resp B/P (MAP) Pulse Ox O2 Delivery O2 Flow Rate FiO2 11/15/18 08:07 98.6 93 20 111/70 (84) 94 Room Air Capillary Refill : Less Than 3 Seconds General Appearance: No Apparent Distress, WD/WN Neck: Normal Inspection, Non Tender, Supple; No Carotid Bruit, No JVD, No Limited Range of Motion, No Lymphadenopathy (L), No Lymphadenopathy (R), No T keri Lateral, No Tender Midline, No Thyromegaly, No Other Respiratory: Chest Non Tender, Lungs Clear, Normal Breath Sounds, No Accessory Muscle Use, No Respiratory Distress; No Accessory Muscle Use, No Crackles, No Decreased Breath Sounds, No Expiration, No Inspiration, No Pleural Rub, No Rales, No Respiratory Distress, No Rhonci, No Stridor, No Wheezing, No Other Cardiovascular: Regular Rate, Rhythm, No Edema, No Gallop, No JVD, No Murmur, Normal Peripheral Pulses; No Bradycardia, No Diastolic Murmur, No Systolic Murmur, No Extra Beats, No Friction Rub, No Gallop/S3, No Gallop/S4, No Irregularly Irregular, No JVD, No Tachycardia, No Other Gastrointestinal: Normal Bowel Sounds, No Organomegaly, No Pulsatile Mass; No Non Tender, No Soft, No Abnormal Bowel Sounds; Guarding, Rebound, Tenderness Back: Normal Inspection, CVA Tenderness (L), CVA Tenderness (R) Extremity: Normal Inspection, Non Tender, No Calf Tenderness, No Pedal Edema; No Pedal Edema, No Swelling Neurologic/Psychiatric: Alert Skin: Normal Color, Warm/Dry Results/Procedures Lab Laboratory Tests 11/15/18 05:22 Patient resulted labs reviewed. Assessment/Plan Assessment and Plan Assess & Plan/Chief Complaint Diverticulitis * NS at 125ml/hr * IV metronidazole & ceftriaxone * Toradol & Fentanyl for pain * surg consult * NPO diet Dysuria * UA was negative * monitor * consider GC and Chlamydia Clinical Quality Measures DVT/VTE Risk/Contraindication: Risk Factor Score Per Nursin RFS Level Per Nursing on Admit: 1=Low/No VTE PPX MAX AGUERO MD 11/15/18 11:17am: Subjective HPI/CC On Admission Time Seen by Provider: 10:30 Objective Exam Gastrointestinal: No Distended Neurologic/Psychiatric: Oriented x3, Normal Mood/Affect Assessment/Plan Assessment and Plan Assess & Plan/Chief Complaint Developed fever overnight. If remains febrile throughout today or tomorrow will broaden abx spectrum. Await blood culture. Discussed plan with Dr Floyd. Supervisory-Addendum Brief Verification & Attestation Time: Verification & Attestat.: 11:16 Participated in pt care: history, MDM, physical Personally performed: exam, history, MDM, supervision of care Care discussed with: Medical Student Procedures: n/a Results interpretation: Verified all documentation Verification and Attestation of Medical Student E/M Service A medical student performed and documented this service in my presence. I reviewed and verified all information documented by the medical student and made modifications to such information, when appropriate. I personally performed the physical exam and medical decision making. Max Aguero, Nov 15, 2018,11:16 HERNANDO HUNT,MED STUDENT Nov 15, 2018 8:03 am MAX AGUERO MD Nov 15, 2018 11:17 am
[2018-11-15 08:07] VITALS: BP 111/70
--- NOTE | 2018-11-15 10:48 | Progress Note - Surgery ---
CRAIG EVERETT,MED STUDENT 11/15/18 1048: Subjective Date Seen by a Provider: Nov 15, 2018 Time Seen by a Provider: 09:56 Subjective/Events-last exam PT tolerating LLQ abdominal pain with fentanyl. Admits to passing flatus but has not experienced any bowel movements. Review of Systems General: No Chills, No Night Sweats, No Fatigue Gastrointestinal: Abdominal Pain, Constipation; No: Nausea, Vomiting, Diarrhea Focused Exam Lactate Level 11/14/18 03:09: Lactic Acid Level 1.56 Respiratory: Chest Non Tender, No Accessory Muscle Use, No Respiratory Distress Cardiovascular: Regular Rate, Rhythm Skin: normal color, warm/dry Objective Exam Vital Signs Date Time Temp Pulse Resp B/P (MAP) Pulse Ox O2 Delivery O2 Flow Rate FiO2 11/15/18 08:07 98.6 93 20 111/70 (84) 94 Room Air 11/15/18 08:00 Room Air 11/15/18 05:45 100.6 11/15/18 04:16 100.1 87 18 123/78 (93) 96 Room Air 11/15/18 00:27 99.4 11/15/18 00:26 99.4 81 18 118/73 (88) 99 Room Air 11/14/18 22:19 99.9 11/14/18 20:15 Room Air 11/14/18 19:51 100.2 96 20 117/78 (91) 97 Room Air 11/14/18 16:53 101.0 11/14/18 16:00 100.4 91 22 122/75 (91) 99 Room Air 11/14/18 12:00 98.8 85 18 124/73 (90) 95 Room Air I & O 11/15/18 07:00 Intake Total 3780 ml Output Total 2225 ml Balance 1555 ml Capillary Refill : Less Than 3 Seconds General Appearance: WD/WN, Mild Distress HEENT: PERRL/EOMI Neck: Normal Inspection, Non Tender, Supple; No Carotid Bruit, No JVD, No Limited Range of Motion, No Lymphadenopathy (L), No Lymphadenopathy (R), No Tender Lateral, No Tender Midline, No Thyromegaly, No Other Respiratory: Chest Non Tender, Lungs Clear, Normal Breath Sounds, No Accessory Muscle Use, No Respiratory Distress; No Accessory Muscle Use, No Crackles, No Decreased Breath Sounds, No Expiration, No Inspiration, No Pleural Rub, No Rales, No Respiratory Distress, No Rhonci, No Stridor, No Wheezing, No Other Cardiovascular: Regular Rate, Rhythm, No Edema, No Gallop, No JVD, No Murmur, Normal Peripheral Pulses; No Bradycardia, No Diastolic Murmur, No Systolic Murmur, No Extra Beats, No Friction Rub, No Gallop/S3, No Gallop/S4, No Irregularly Irregular, No JVD, No Tachycardia, No Other Gastrointestinal: soft, tenderness (LLQ tenderness to palpation) Extremity: Normal Inspection, Non Tender, No Calf Tenderness, No Pedal Edema; No Pedal Edema, No Swelling Neurologic/Psychiatric: Alert Skin: Normal Color, Warm/Dry Lymphatic: No Adenopathy Results Lab Laboratory Tests 11/15/18 05:22: White Blood Count 13.8H, Red Blood Count 4.49, Hemoglobin 13.6, Hematocrit 40, Mean Corpuscular Volume 89, Mean Corpuscular Hemoglobin 30, Mean Corpuscular Hemoglobin Concent 34, Red Cell Distribution Width 12.3, Platelet Count 258, Mean Platelet Volume 9.9, Sodium Level 137, Potassium Level 3.6, Chloride Level 106, Carbon Dioxide Level 20L, Anion Gap 11, Blood Urea Nitrogen 10, Creatinine 0.71, Estimat Glomerular Filtration Rate > 60, BUN/Creatinine Ratio 14, Glucose Level 85, Calcium Level 8.6, Magnesium Level 2.2 Assessment/Plan Assessment/Plan Assessment/Plan LLq abdominal pain Diverticulitis Leukocytosis continue IV ABX continue Clear liquids repeat labs in am continue fentanyl for pain conservative management follow up colonoscopy 6-8 weeks as above Clinical Quality Measures DVT/VTE Risk/Contraindication: Risk Factor Score Per Nursin RFS Level Per Nursing on Admit: 1=Low/No VTE PPX HEAVEN FLOYD DO 11/15/18 1121: Subjective Subjective/Events-last exam llq abd pain same. NPO, passing flatus. Morphine caused headache. Denies n/v sweats chills shortness of breath or chest pain. Objective Exam General Appearance: No Apparent Distress; No Mild Distress Neurologic/Psychiatric: Oriented x3 Assessment/Plan Assessment/Plan Assessment/Plan npo Supervisory-Addendum Brief Verification & Attestation Time: Verification & Attestat.: 11:15 Participated in pt care: history, MDM, physical Personally performed: exam, history, MDM, supervision of care Care discussed with: Medical Student Procedures: n/a Results interpretation: Verified all documentation Verification and Attestation of Medical Student E/M Service A medical student performed and documented this service in my presence. I reviewed and verified all information documented by the medical student and made modifications to such information, when appropriate. I personally performed the physical exam and medical decision making. Heaven Floyd, Nov 15, 2018,11:15 CRAIG EVERETT,MED STUDENT Nov 15, 2018 10:48 HEAVEN FLOYD DO Nov 15, 2018 11:21
[2018-11-15 11:47] VITALS: BP 115/78
[2018-11-15 16:57] VITALS: BP 124/74
[2018-11-15 20:37] VITALS: BP 127/79
[2018-11-16 00:12] VITALS: BP 119/76
[2018-11-16] MEDS: cefTRIAXone 1,000 MG/SWFI 10 ML IV PUSH IV SCH ×2 (03:00)
[2018-11-16 04:35] VITALS: BP 134/85
[2018-11-16] MEDS: metroNIDAZOLE 500 MG/100 ML IVPB (PRE-MIX) IV SCH ×3 (05:43→17:52)
[2018-11-16] MEDS: NS IV 1000 ML 1,000 ML IV SCH ×3 (05:46→20:45)
[2018-11-16] MEDS: KETOROLAC 30 MG/ML VIAL IV PRN ×2 (05:46→15:02)
[2018-11-16 06:20] LABS: HEMOGLOBIN 13.8 G/DL (13.3-17.7); MEAN PLATELET VOLUME 10.1 FL (7.4-10.4); RED CELL DISTRIBUTION WIDTH 11.7 % (10.0-14.5); WHITE BLOOD COUNT 12.9 10^3/uL (4.3-11.0)
[2018-11-16 06:45] LABS: BUN/CREATININE RATIO 15; CALCIUM 8.7 MG/DL (8.5-10.1); CARBON DIOXIDE 18 MMOL/L (21-32); CHLORIDE 106 MMOL/L (98-107); CREATININE SERUM 0.62 MG/DL (0.60-1.30); GFR ESTIMATED > 60; GLUCOSE 70 MG/DL (70-105); MAGNESIUM 1.8 MG/DL (1.8-2.4); POTASSIUM 3.4 MMOL/L (3.6-5.0); SODIUM 137 MMOL/L (135-145)
[2018-11-16 08:00] VITALS: BP 126/73
--- NOTE | 2018-11-16 10:02 | Progress Note - Hospitalist ---
HERNANDO HUNT,MED STUDENT 11/16/18 10:02am: Subjective HPI/CC On Admission Date Seen by Provider: Nov 16, 2018 Time Seen by Provider: 11:01 Lower abodominal pain LLQ > RLQ Subjective/Events-last exam Patient states that pain has improved and was wondering when he can eat again. He says that he has not had a bowel since arriving in hospital but voids regularly. Dysuria has improved. denies chest pain, N/V, fever, chills, headache Review of Systems General: No Chills HEENT: No Head Aches Pulmonary: No Dyspnea Gastrointestinal: No: Nausea, Vomiting Genitourinary: Dysuria Focused Exam Lactate Level 11/14/18 03:09: Lactic Acid Level 1.56 Objective Exam Vital Signs Vital Signs Date Time Temp Pulse Resp B/P (MAP) Pulse Ox O2 Delivery O2 Flow Rate FiO2 11/16/18 08:00 Room Air 11/16/18 08:00 98.5 88 16 126/73 (90) 97 Capillary Refill : Less Than 3 SecondsLess Than 3 Seconds General Appearance: No Apparent Distress, WD/WN Respiratory: Chest Non Tender, Lungs Clear, Normal Breath Sounds, No Accessory Muscle Use, No Respiratory Distress Cardiovascular: Regular Rate, Rhythm, No Edema, No Gallop, No Murmur, Normal Peripheral Pulses Gastrointestinal: Normal Bowel Sounds; No Distended; Guarding Extremity: Normal Inspection, Non Tender, No Calf Tenderness, No Pedal Edema; No Pedal Edema, No Swelling Neurologic/Psychiatric: Oriented x3, Normal Mood/Affect Skin: Normal Color, Warm/Dry Results/Procedures Lab Laboratory Tests 11/16/18 05:55 Patient resulted labs reviewed. Assessment/Plan Assessment and Plan Assess & Plan/Chief Complaint Diverticulitis * NS at 125ml/hr * Can DC if he maintains oral intake * IV metronidazole & ceftriaxone * Toradol & Fentanyl for pain * surg consult * advance to clear liquid diet * Leukocytosis * Resolving * Afebrile for 24hrs Potassium replacement == IV 20mEq KCl Dysuria * UA was negative * monitor * consider GC and Chlamydia Clinical Quality Measures DVT/VTE Risk/Contraindication: Risk Factor Score Per Nursin RFS Level Per Nursing on Admit: 1=Low/No VTE PPX MAX AGUERO MD 11/16/18 12:03pm: Subjective Subjective/Events-last exam Pt reports feeling better. Dysuria resolved. Abdominal pain improving. Requesting food. Discussed with RN and no concerns. Objective Exam Gastrointestinal: Soft, Tenderness (mild, improved) Neurologic/Psychiatric: Alert Assessment/Plan Assessment and Plan Assess & Plan/Chief Complaint Pt improving. Will continue on current abx. Advance diet to clear liquids. Continue pain regimen. Replace potassium for hypokalemia and check in AM. Discussed with Dr Floyd. If tolerates diet can likely DC home tomorrow. Diagnosis/Problems Diagnosis/Problems (1) Diverticulitis of intestine Status: Acute Qualifiers: Qualified Codes: K57.32 - Diverticulitis of large intestine without perforation or abscess without bleeding (2) Dysuria Supervisory-Addendum Brief Verification & Attestation Time: Verification & Attestat.: 11:58 Participated in pt care: history, MDM, physical Personally performed: exam, history, MDM, supervision of care Care discussed with: Medical Student Procedures: n/a Results interpretation: Verified all documentation Verification and Attestation of Medical Student E/M Service A medical student performed and documented this service in my presence. I reviewed and verified all information documented by the medical student and made modifications to such information, when appropriate. I personally performed the physical exam and medical decision making. Max Aguero, Nov 16, 2018,11:58 HERNANDO HUNT,MED STUDENT Nov 16, 2018 10:02 am MAX AGUERO MD Nov 16, 2018 12:03 pm
[2018-11-16] MEDS: POTASSIUM CL 10MEQ/50ML IVPB 50 ML IV SCH ×2 (11:26→11:28)
--- NOTE | 2018-11-16 14:10 | NUR ---
PATIENT AMBULATING IN HALLWAY, REPORTS LLE PAIN. THIS RN CHECKED FOR HOMANS SIGN WHILE LYING DOWN IN BED AND HOMANS SIGN WAS POSITIVE. NO REDNESS, HEAT, OR SWELLING TO LLE. DR GODOY NOTIFIED AND ORDERED ONE TIME DOSE 80 MG LOVENOX AND U/S TO LLE IN A.M. THIS NURSE ENGINEER AND GEOLOGIST ORDER BOTH LOVENOX AND U/S. WILL CONTINUE TO MONITOR.
--- NOTE | 2018-11-16 14:10 | Progress Note - Surgery ---
MICHAEL NAM,MED STUDENT 11/16/18 1410: Subjective Date Seen by a Provider: Nov 16, 2018 Time Seen by a Provider: 11:15 Subjective/Events-last exam Patient is feeling well today and states his pain is much improved. He admits to some mild abdominal bloating. He had a small bowel movement this morning. Denies chills, shortness of breath, or chest pain. No family at bedside. Review of Systems General: No Chills Cardiovascular: No: Chest Pain Gastrointestinal: Abdominal Pain; No: Nausea, Vomiting Focused Exam Lactate Level 11/14/18 03:09: Lactic Acid Level 1.56 Objective Exam Vital Signs Date Time Temp Pulse Resp B/P (MAP) Pulse Ox O2 Delivery O2 Flow Rate FiO2 11/16/18 08:00 Room Air 11/16/18 08:00 98.5 88 16 126/73 (90) 97 Room Air 11/16/18 04:35 100.2 102 18 134/85 (101) 98 Room Air 11/16/18 00:12 98.2 90 18 119/76 (90) 97 Room Air 11/15/18 20:37 99.5 100 16 127/79 (95) 97 Room Air 11/15/18 20:30 Room Air 11/15/18 16:57 99.0 96 16 124/74 (91) 100 Room Air I & O 11/16/18 07:00 Intake Total 100 ml Output Total 1300 ml Balance -1200 ml Capillary Refill : Less Than 3 SecondsLess Than 3 Seconds General Appearance: No Apparent Distress, WD/WN HEENT: PERRL/EOMI, Normal ENT Inspection Neck: Full Range of Motion, Normal Inspection, Non Tender Respiratory: Chest Non Tender, No Accessory Muscle Use, No Respiratory Distress Cardiovascular: Regular Rate, Rhythm, No Edema, Normal Peripheral Pulses Gastrointestinal: soft, tenderness (mild LLQ tenderness to palpation) Extremity: Normal Inspection, Non Tender, No Calf Tenderness, No Pedal Edema Neurologic/Psychiatric: Alert, Oriented x3, No Motor/Sensory Deficits, Normal Mood/Affect Skin: Normal Color, Warm/Dry Lymphatic: No Adenopathy Results Lab Laboratory Tests 11/16/18 05:55: White Blood Count 12.9H, Red Blood Count 4.58, Hemoglobin 13.8, Hematocrit 40, Mean Corpuscular Volume 88, Mean Corpuscular Hemoglobin 30, Mean Corpuscular Hemoglobin Concent 34, Red Cell Distribution Width 11.7, Platelet Count 289, Mean Platelet Volume 10.1, Sodium Level 137, Potassium Level 3.4L, Chloride Level 106, Carbon Dioxide Level 18L, Anion Gap 13, Blood Urea Nitrogen 9, Creatinine 0.62, Estimat Glomerular Filtration Rate > 60, BUN/Creatinine Ratio 15, Glucose Level 70, Calcium Level 8.7, Magnesium Level 1.8 Microbiology 11/14/18 Blood Culture - Preliminary, Resulted No growth Assessment/Plan Assessment/Plan Assessment/Plan LLQ abdominal pain Diverticulitis Advance to clear liquid diet No surgical intervention at this time Pain well controlled Continue conservative management Diagnosis/Problems Diagnosis/Problems (1) Diverticulitis of intestine Status: Acute Qualifiers: Qualified Codes: K57.32 - Diverticulitis of large intestine without perforation or abscess without bleeding Clinical Quality Measures DVT/VTE Risk/Contraindication: Risk Factor Score Per Nursin RFS Level Per Nursing on Admit: 1=Low/No VTE PPX HEAVEN FLOYD DO 11/16/18 1523: Subjective Subjective/Events-last exam Pain better controlled. Passing some flatus and bm. No n/v. Objective Exam Gastrointestinal: tenderness (mild LLQ tenderness to palpation) Assessment/Plan Assessment/Plan Assessment/Plan Will need colonoscopy outpatient once symptoms resolved. Supervisory-Addendum Brief Verification & Attestation Time: Verification & Attestat.: 15:13 Participated in pt care: history, MDM, physical Personally performed: exam, history, MDM, supervision of care Care discussed with: Medical Student Procedures: n/a Results interpretation: Verified all documentation Verification and Attestation of Medical Student E/M Service A medical student performed and documented this service in my presence. I reviewed and verified all information documented by the medical student and made modifications to such information, when appropriate. I personally performed the physical exam and medical decision making. Heaven Floyd, Nov 16, 2018,15:13 MICHAEL NAM,MED STUDENT Nov 16, 2018 14:10 HEAVEN FLOYD DO Nov 16, 2018 15:23
[2018-11-16] MEDS ORDERED: ENOXAPARIN 80 MG/0.8 ML (LOVENOX) SYR SC ONE (14:30)
[2018-11-16] MEDS: ACETAMINOPHEN 500 MG TAB (TYLENOL) PO PRN (14:39)
[2018-11-16 16:13] VITALS: BP 121/77
[2018-11-17] MEDS: metroNIDAZOLE 500 MG/100 ML IVPB (PRE-MIX) IV SCH ×3 (00:03→11:34)
[2018-11-17 00:19] VITALS: BP 135/82
[2018-11-17] MEDS: NS IV 1000 ML 1,000 ML IV SCH (04:35)
[2018-11-17] MEDS: cefTRIAXone 1,000 MG/SWFI 10 ML IV PUSH IV SCH ×2 (04:35)
[2018-11-17 06:16] LABS: BASOPHILS % (AUTO) 0 % (0-10); EOSINOPHILS # (AUTO) 0.1 10^3/uL (0.0-0.3); EOSINOPHILS % (AUTO) 1 % (0-10); HEMATOCRIT 40 % (40-54); HEMOGLOBIN 13.6 G/DL (13.3-17.7); LYMPHOCYTES # (AUTO) 1.6 X 10^3 (1.0-4.0); LYMPHOCYTES % (AUTO) 15 % (12-44); MEAN CORPUSCULAR HEMOGLOBIN 30 PG (25-34); MEAN CORPUSCULAR HGB CONC 34 G/DL (32-36); MEAN CORPUSCULAR VOLUME 87 FL (80-99); MEAN PLATELET VOLUME 9.9 FL (7.4-10.4); MONOCYTES # (AUTO) 0.9 X 10^3 (0.0-1.0); MONOCYTES % (AUTO) 8 % (0-12); NEUTROPHILS # (AUTO) 8.1 X 10^3 (1.8-7.8); NEUTROPHILS % (AUTO) 76 % (42-75); PLATELET COUNT 378 10^3/uL (130-400); RED CELL DISTRIBUTION WIDTH 11.9 % (10.0-14.5); WHITE BLOOD COUNT 10.7 10^3/uL (4.3-11.0)
[2018-11-17 06:36] LABS: BUN/CREATININE RATIO 13; CALCIUM 8.9 MG/DL (8.5-10.1); CARBON DIOXIDE 15 MMOL/L (21-32); CHLORIDE 107 MMOL/L (98-107); CREATININE SERUM 0.67 MG/DL (0.60-1.30); GFR ESTIMATED > 60; GLUCOSE 61 MG/DL (70-105); POTASSIUM 3.6 MMOL/L (3.6-5.0); SODIUM 138 MMOL/L (135-145)
[2018-11-17 08:00] VITALS: BP 128/73
--- NOTE | 2018-11-17 08:11 | Progress Note - Surgery ---
VIVMICHAEL,MED STUDENT 11/17/18 0811: Subjective Date Seen by a Provider: Nov 17, 2018 Time Seen by a Provider: 07:07 Subjective/Events-last exam Patient states his abdominal pain has completely resolved and he is requesting to go home. He admits to having an episode of diarrhea yesterday. Last night he complained of pain in the left LE and was given lovenox due to concern for possible DVT. An ultrasound is planned for later today. He also states that he had 3 episodes of vomiting last night after receiving lovenox injection. No other complaints at this time. Denies fever, chills, SOB, chest pain, or nausea. No family at bedside. Review of Systems General: No Chills Cardiovascular: No: Chest Pain Gastrointestinal: Vomiting; No: Nausea Objective Exam Vital Signs Date Time Temp Pulse Resp B/P (MAP) Pulse Ox O2 Delivery O2 Flow Rate FiO2 11/17/18 00:19 98.2 82 18 135/82 (99) 95 Room Air 11/16/18 20:00 97 Room Air 11/16/18 16:13 99.7 81 21 121/77 (92) 97 Room Air I & O 11/17/18 06:59 Intake Total 3050 ml Output Total 2300 ml Balance 750 ml Capillary Refill : Less Than 3 SecondsLess Than 3 Seconds General Appearance: No Apparent Distress, WD/WN HEENT: PERRL/EOMI, Normal ENT Inspection Neck: Full Range of Motion, Normal Inspection, Non Tender Respiratory: Chest Non Tender, No Accessory Muscle Use, No Respiratory Distress Cardiovascular: Regular Rate, Rhythm, No Edema, Normal Peripheral Pulses Gastrointestinal: non tender, soft Extremity: Normal Inspection, Non Tender, No Calf Tenderness, No Pedal Edema Neurologic/Psychiatric: Alert, Oriented x3, No Motor/Sensory Deficits, Normal Mood/Affect Skin: Normal Color, Warm/Dry Lymphatic: No Adenopathy Results Lab Laboratory Tests 11/17/18 05:50: White Blood Count 10.7, Red Blood Count 4.56, Hemoglobin 13.6, Hematocrit 40, Mean Corpuscular Volume 87, Mean Corpuscular Hemoglobin 30, Mean Corpuscular Hemoglobin Concent 34, Red Cell Distribution Width 11.9, Platelet Count 378, Mean Platelet Volume 9.9, Neutrophils (%) (Auto) 76H, Lymphocytes (%) (Auto) 15, Monocytes (%) (Auto) 8, Eosinophils (%) (Auto) 1, Basophils (%) (Auto) 0, Neutrophils # (Auto) 8.1H, Lymphocytes # (Auto) 1.6, Monocytes # (Auto) 0.9, Eosinophils # (Auto) 0.1, Basophils # (Auto) 0.0, Sodium Level 138, Potassium Level 3.6, Chloride Level 107, Carbon Dioxide Level 15L, Anion Gap 16H, Blood Urea Nitrogen 9, Creatinine 0.67, Estimat Glomerular Filtration Rate > 60, BUN/Creatinine Ratio 13, Glucose Level 61L, Calcium Level 8.9 Microbiology 11/14/18 Blood Culture - Preliminary, Resulted No growth Assessment/Plan Assessment/Plan Assessment/Plan LLQ pain Diverticulitis Will need colonoscopy outpatient once symptoms resolved. Diagnosis/Problems Diagnosis/Problems (1) Diverticulitis of intestine Status: Acute Qualifiers: Qualified Codes: K57.32 - Diverticulitis of large intestine without perforation or abscess without bleeding Clinical Quality Measures DVT/VTE Risk/Contraindication: Risk Factor Score Per Nursin RFS Level Per Nursing on Admit: 1=Low/No VTE PPX SHEMAR FLOYD DO 11/17/18 1717: Subjective Subjective/Events-last exam as above, no nausea or emesis today. feeling well. wanting to go home. Assessment/Plan Assessment/Plan Assessment/Plan wbc down tolerating liquids slowly advance diet home oral abx will need colonoscopy outpatient about 6 weeks after resolved Supervisory-Addendum Brief Verification & Attestation Time: Verification & Attestat.: 17:16 Participated in pt care: history, MDM, physical Personally performed: exam, history, MDM, supervision of care Care discussed with: Medical Student Procedures: n/a Results interpretation: Verified all documentation Verification and Attestation of Medical Student E/M Service A medical student performed and documented this service in my presence. I reviewed and verified all information documented by the medical student and made modifications to such information, when appropriate. I personally performed the physical exam and medical decision making. Shemar Floyd, Nov 17, 2018,17:16 MICHAEL NAM,MED STUDENT Nov 17, 2018 08:11 SHEMAR FLOYD DO Nov 17, 2018 17:17
--- NOTE | 2018-11-17 09:15 | NUR ---
Pt given CLD, tolerated well, ate 75%
--- NOTE | 2018-11-17 10:55 | Diagnostic Imaging Report ---
PROCEDURE: US left lower extremity venous. TECHNIQUE: Multiple real-time grayscale images were obtained over the left lower extremity in various projections. Additional duplex Doppler and color Doppler images were also obtained. INDICATION: Left leg and calf pain and swelling. There is no evidence of left lower extremity DVT. Left lower extremity deep venous system demonstrates normal compressibility with normal response to augmentation and Valsalva. No fluid collection is seen. IMPRESSION: No evidence of left lower extremity DVT. Dictated by: Dictated on workstation # [id number]
[2018-11-17] MEDS ORDERED: METR500T PO (12:53)
[2018-11-17] MEDS ORDERED: CIPR500S3 PO (12:53)
--- NOTE | 2018-11-17 12:55 | Discharge Inst-Simple/Standard ---
Discharge Inst-Standard Discharge Medications New, Converted or Re-Newed RX: RX Given to Pt/Family Patient Instructions/Follow Up Plan of Care/Instructions/FU: Take medications as prescribed. Follow up with PCP in about one week. Activity as Tolerated: Yes Discharge Diet: No Restrictions Return to The Hospital For: fever, uncontrolled pain, intractable nausea and vomiting, chest pain, and shortness of breath. GABRIELLE EUGENE MD Nov 17, 2018 12:55
--- NOTE | 2018-11-17 13:03 | Discharge Summary ---
Diagnosis/Chief Complaint Date of Admission Nov 14, 2018 at 03:08 Date of Discharge Discharge Date: Nov 17, 2018 Discharge Time: 14:00 Admission Diagnosis Diverticulitis Discharge Diagnosis Diverticulitis (1) Diverticulitis of intestine Status: Acute Discharge Summary Discharge Physical Exam Allergies: Coded Allergies: No Known Drug Allergies (Unverified , 04/20/09) Vitals & I&Os Vital Signs Date Time Temp Pulse Resp B/P (MAP) Pulse Ox O2 Delivery O2 Flow Rate FiO2 11/17/18 13:45 11/17/18 08:00 Room Air 11/17/18 08:00 99.0 91 16 98 General Appearance: No Apparent Distress, WD/WN HEENT: PERRL/EOMI, Moist Mucous Membranes Respiratory: Normal Breath Sounds, No Respiratory Distress Cardiovascular: Regular Rate, Rhythm, No Edema, No Murmur Gastrointestinal: Normal Bowel Sounds, Non Tender, Soft; No Distended Extremity: Normal Inspection, Non Tender, No Pedal Edema Skin: Normal Color, Warm/Dry Neurologic/Psychiatric: Alert; No Disoriented Hospital Course 38yoM admitted with diverticulitis. He was treated with ceftriaxone and metronidazole. He did not require significant amounts of analgesics. His pain and nausea improved and he was then transitioned to oral ciprofloxacin and metro nidazole. He was discharged home and will follow up with general surgery in about two weeks and his PCP in about one week. Labs (last 24 hrs) Microbiology 11/14/18 Blood Culture - Preliminary, Resulted No growth Patient resulted labs reviewed. Pending Labs Discussion & Recommendations Discharge Planning: <30 minutes discharge planning Discharge Home Medications: Active Scripts Active Flagyl (Metronidazole) 500 Mg Tablet 500 Mg PO TID 7 Days Ciprofloxacin 500 Mg/5 Ml Minnie.mc.rec 500 Mg PO BID 7 Days Instructions to patient/family Please see electronic discharge instructions given to patient. Clinical Quality Measures DVT/VTE Risk/Contraindication: Risk Factor Score Per Nursin RFS Level Per Nursing on Admit: 1=Low/No VTE PPX Problem Qualifiers (1) Diverticulitis of intestine: Diverticulitis site: large intestine Diverticulitis bleeding: without bleeding Diverticulitis complication: without perforation or abscess Qualified Codes: K57.32 - Diverticulitis of large intestine without perforation or abscess without bleeding GABRIELLE EUGENE MD Nov 17, 2018 13:03
--- NOTE | 2018-11-17 15:00 | Discharge Summary ---
Diagnosis/Chief Complaint Date of Admission Nov 14, 2018 at 03:08 Date of Discharge Nov 17, 2018 at 13:45 Discharge Date: Nov 17, 2018 Discharge Time: 14:00 Admission Diagnosis Diverticulitis Discharge Diagnosis Diverticulitis (1) Diverticulitis of intestine Status: Acute (2) Starvation ketoacidosis Status: Acute Discharge Summary Procedures/Consulations General surgery Discharge Physical Exam Allergies: Coded Allergies: No Known Drug Allergies (Unverified , 04/20/09) Vitals & I&Os Vital Signs Date Time Temp Pulse Resp B/P (MAP) Pulse Ox O2 Delivery O2 Flow Rate FiO2 11/17/18 13:45 11/17/18 08:00 Room Air 11/17/18 08:00 99.0 91 16 98 General Appearance: No Apparent Distress Respiratory: Normal Breath Sounds, No Respiratory Distress Cardiovascular: Regular Rate, Rhythm, No Murmur Gastrointestinal: Normal Bowel Sounds, Non Tender, Soft Extremity: Normal Inspection, Non Tender, No Pedal Edema Skin: Normal Color, Warm/Dry Neurologic/Psychiatric: Alert, No Motor/Sensory Deficits Hospital Course Was the Problem List Reviewed?: Yes 38-year-old male who presented with diverticulitis. He was started on IV antibiotics with ceftriaxone and Flagyl. His pain was well-controlled with minimal analgesics. His diet was advanced and he tolerated it well, without worsening pain or nausea. He was transitioned to oral ciprofloxacin and Flagyl. It was recommended that he follow-up with general surgery in about two weeks. Labs (last 24 hrs) Laboratory Tests 11/17/18 05:50: White Blood Count 10.7, Red Blood Count 4.56, Hemoglobin 13.6, Hematocrit 40, Mean Corpuscular Volume 87, Mean Corpuscular Hemoglobin 30, Mean Corpuscular Hemoglobin Concent 34, Red Cell Distribution Width 11.9, Platelet Count 378, Mean Platelet Volume 9.9, Neutrophils (%) (Auto) 76H, Lymphocytes (%) (Auto) 15, Monocytes (%) (Auto) 8, Eosinophils (%) (Auto) 1, Basophils (%) (Auto) 0, Neutrophils # (Auto) 8.1H, Lymphocytes # (Auto) 1.6, Monocytes # (Auto) 0.9, Eosinophils # (Auto) 0.1, Basophils # (Auto) 0.0, Sodium Level 138, Potassium Level 3.6, Chloride Level 107, Carbon Dioxide Level 15L, Anion Gap 16H, Blood Urea Nitrogen 9, Creatinine 0.67, Estimat Glomerular Filtration Rate > 60, BUN/Creatinine Ratio 13, Glucose Level 61L, Calcium Level 8.9, Beta- Hydroxybutyrate (Chem panel) 3.47H 11/17/18 08:44: Lactic Acid Level 0.85 Microbiology 11/14/18 Blood Culture - Preliminary, Resulted No growth Patient resulted labs reviewed. Pending Labs Laboratory Tests 11/17/18 08:44: Lactic Acid Level 0.85 Imaging: Reviewed Imaging Report Discussion & Recommendations Discharge Planning: <30 minutes discharge planning Discharge Home Medications: Active Scripts Active Flagyl (Metronidazole) 500 Mg Tablet 500 Mg PO TID 7 Days Ciprofloxacin 500 Mg/5 Ml Minnie.mc.rec 500 Mg PO BID 7 Days Condition at discharge Stable Instructions to patient/family Please see electronic discharge instructions given to patient. Clinical Quality Measures DVT/VTE Risk/Contraindication: Risk Factor Score Per Nursin RFS Level Per Nursing on Admit: 1=Low/No VTE PPX Problem Qualifiers (1) Diverticulitis of intestine: Diverticulitis site: large intestine Diverticulitis bleeding: without bleeding Diverticulitis complication: without perforation or abscess Qualified Codes: K57.32 - Diverticulitis of large intestine without perforation or abscess without bleeding GABRIELLE EUGENE MD Nov 17, 2018 15:00
== END 2018-11-17 13:45 | disposition home or self-care (01) | DRG 392 ==
LOC: EDUNIT# 00:08 → ER 00:10 → 4TH 03:08
PROVIDERS: ADMIT Internal Medicine; ATTEND Internal Medicine
DX: K57.32 Diverticulitis of large intestine without perforation or abscess without bleeding (principal); R30.0 Dysuria; E87.2 Acidosis
CPT/HCPCS: 36415; 74177; 80048; 80053; 81000; 82010; 83605; 83735; 85007; 85025; 85027; 86141; 87040; 96361; 96374; 96375

== ENCOUNTER 2019-07-04 17:54 | Emergency (ER) | payer SELFPAY ==
[~2019-07-04] VITALS: Ht 170 cm; Wt 77.0 kg
[~2019-07-04 17:54] MED LIST changes: +CIPR500S3 PO
[2019-07-04 18:00] VITALS: BP 146/90
--- OUTSIDE RECORDS SUMMARY | 2019-07-04 18:00 | XMS REPORT ---
Author Author [facility]baro Chiu [facility] Address [address] [place] [address] Care Team Providers Care Bleach Packer Name Role Phone DEVAN Chiu Unavailable PROBLEMS Type Condition ICD9-CM Code [id number] Code Onset Dates Condition S tatus SNOMED Code Problem Diarrhea 787.91 Active 58746134 Problem Abdominal pain, left lower quadrant 789.04 Active 816907967 Problem Acute left-sided low back pain with left-sided sciatica M54.42 Active 308317831 Problem Unspecified acute conjunctivitis 372.00 Active 21701383 Problem Blood in stool 578.1 Active 71459 9008 Problem Lumbago 724.2 Active 418793046 Problem Unspecified conjunctivitis 372.30 Act lovely 5891510 Problem Acute sinusitis, unspecified 461.9 A ctive [id number] ALLERGIES No Known Allergies ENCOUNTERS Encounter Location Date Diagnosis [facility] [address] [place] [phone] Sep, Acute left-sided low back pa in with left-sided sciatica M54.42 [facility] [address] [place] [address] Jul, Strep pharyngitis J02.0 and Sore throat J02.9 [facility] [address] [place] [address] Jul, [facility] [address] [id number] [address] [place] [address] Jul, [facility] [address] [id number] [address] [place] [phone] Nov, [facility] [address] [id number] [address] [place] [phone] Nov, [facility] [address] [id number] [address] [place] [address], [place] [address] Nov, [facility] [address] [id number] [address] [place] [address], [place] [address] Nov, [facility] [address] [id number] [address] [place] [address], [place] [address] Nov, [facility] [address] [id number] [address] [place] [address], [place] [address] Nov, [facility] [address] [id number] [address] [place] [address], [place] [address] Jul, [facility] [address] [id number] [address] [place] [address], [place] [address] Jul, [facility] [address] [id number] [address] [place] [address], [place] [address] Jun, [facility] [address] [id number] [address] [place] [address], [place] [address] Jun, [facility] [address] [id number] [address] [place] [address], [place] [address] Apr, [facility] [address] [id number] [address] [place] [address], [place] [address] Apr, [facility] [address] [id number] [address] [place] [address], [place] [address] Apr, [facility] [address] [id number] [address] [place] [address], [place] [address] Apr, [facility] [address] [id number] [address] [place] [address], [place] [address] Apr, [facility] [address] [id number] [address] [place] [address], [place] [address] Apr, [facility] [address] [id number] [address] [place] [address], [place] [address] Mar, [facility] [address] [id number] [address] [place] [phone] 17 Feb, 2011 [facility] [address] [facility] [id number] [address] [place] [phone] 16 Feb, 2011 [facility] [address] [id number] [address] [place] [phone] 14 Feb, 2011 [facility] [address] [facility] [id number] [address] [place] [address] Feb, [facility] [address] [facility] [id number] [address] [place] [phone] Jan, [facility] [address] [facility] [id number] [address] [place] [phone] Nov, IMMUNIZATIONS Vaccine Route Administration Date Status DEXAMETHASONE 4MG/ML (PER 1 MG) IM Intramuscular October 02, 2016 Administered DEPO MEDROL 40 MG/ML IM Intramuscular October 02, 2016 Administer ed SOCIAL HISTORY Never Assessed REASON FOR VISIT lower back pain for 2 days. was lifting tools and felt something pull. deng saul PLAN OF CARE Activity Details Follow Up prn Reason: VITAL SIGNS Height 64 in 2016-10-02 Weight 188.4 lbs 2016-10-02 Temperature 98.2 degrees Fahrenheit 2016-10-02 Heart Rate 88 bpm 2016-10-02 Respiratory Rate 20 2016-10-02 BMI 32.34 kg/m2 2016-10-02 Blood pressure systolic 120 mmHg 2016-10-02 Blood pressure diastolic 82 mmHg 2016-10-02 MEDICATIONS Medication Instructions Dosage Frequency Start Date End Date Duration S tatus Cyclobenzaprine HCl 5 MG Orally Three times a day 1 tablet as neede d 8h Sep, Sep, 5 days Active RESULTS No Results PROCEDURES Procedure Date Ordered Result Body Site DEPO MEDROL 40 MG/ML October 02, 2016 DEXAMETHASONE 4MG/ML (PER 1 MG) October 02, 2016 THER/PROPH/DIAG INJ, SC/IM October 02, 2016 INSTRUCTIONS MEDICATIONS ADMINISTERED No Known Medications
--- OUTSIDE RECORDS SUMMARY | 2019-07-04 18:00 | XMS REPORT ---
Author Author Albaro Jett Doctor Organization [facility] Address Unknown Phone Unavailable Care Team Providers Care Kennel Operator Name Role Phone Migration, Doctor Unavailable Unavailable PROBLEMS Type Condition ICD9-CM Code [id number] Code Onset Dates Condition S tatus SNOMED Code Problem Abdominal pain, left lower quadrant 789.04 Active 019053772 Problem Diarrhea 787.91 Active 02072374 Problem Unspecified acute conjunctivitis 372.00 Active 59317752 Problem Acute left-sided low back pain with left-sided sciatica M54.42 Active 583864055 Problem Lumbago 724.2 Active 905364892 Problem Blood in stool 578.1 Active 92126 9008 Problem Acute sinusitis, unspecified 461.9 A ctive 53388293 Problem Unspecified conjunctivitis 372.30 Act lovely 0952606 ALLERGIES No Information ENCOUNTERS Encounter Location Date Diagnosis [facility] [address] [facility] [id number] [address] [place] [address] 20 Sep, 2016 Acute left-sided low back pa in with left-sided sciatica M54.42 [facility] [address] [id number] [address] [place] [phone] 18 Jul, 2015 Strep pharyngitis J02.0 and Sore throat J02.9 [facility] [address] [place] [address] Jul, [facility] [address] [id number] [address] [place] [address] Jul, [facility] [address] [id number] [address] [place] [phone] Nov, [facility] [address] [facility] [id number] [address] [place] [phone] Nov, [facility] [address] [id number] [address] [place] [phone] Nov, [facility] [address] [id number] [address] [place] [address], [place] [address] Nov, [facility] [address] [id number] [address] [place] [address], [place] [address] Nov, [facility] [address] [id number] [address] [place] [address], [place] [address] Nov, [facility] [address] [id number] [address] [place] [address], [place] [address] Jul, [facility] [address] [id number] [address] [place] [address], [place] [address] Jul, [facility] [address] [id number] [address] [place] [address], [place] [address] Jun, [facility] [address] [id number] [address] [place] [address], [place] [address] Jun, [facility] [address] [id number] [address] [place] [address], [place] [address] Apr, [facility] [address] [id number] [address] [place] [address], [place] [address] Apr, [facility] [address] [id number] [address] [place] [address], [place] [address] Apr, [facility] [address] [id number] [address] [place] [address], [place] [address] Apr, [facility] [address] [id number] [address] [place] [address], [place] [address] Apr, [facility] [address] [id number] [address] [place] [address], [place] [address] Apr, [facility] [address] [id number] [address] [place] [address], [place] [address] Mar, [facility] [address] [id number] [address] [place] [address], [place] [address] Feb, [facility] [address] [id number] [address] [place] [phone] 16 Feb, 2011 [facility] [address] [facility] [id number] [address] [place] [phone] 14 Feb, 2011 [facility] [address] [facility] [id number] [address] [place] [phone] 14 Feb, 2011 [facility] [address] [facility] [id number] [address] [place] [phone] 24 Jan, 2011 [facility] [address] [facility] [id number] [address] [place] [phone] Nov, IMMUNIZATIONS No Known Immunizations SOCIAL HISTORY Never Assessed REASON FOR VISIT E[facility] [place] PLAN OF CARE VITAL SIGNS MEDICATIONS No Known Medications RESULTS No Results PROCEDURES No Known procedures INSTRUCTIONS MEDICATIONS ADMINISTERED No Known Medications
--- OUTSIDE RECORDS SUMMARY | 2019-07-04 18:00 | XMS REPORT ---
Author Author Albaro LEAL Organization [employer] Address Unknown Phone Unavailable Care Team Providers Care Maid Cleaning Cooking Name Role Phone BRYANT LEAL CP Unavailable Allergies, Adverse Reactions, Alerts Substance Reaction Event Type N.K.D.A. Info Not Available Non Drug Allergy Problems Problem Type Condition Code Onset Dates Condition Statu s Assessment Strep pharyngitis J02.0 Active Assessment Sore throat J02.9 Active Problem Abdominal pain, left lower quadrant 789.04 Active Problem Diarrhea 787.91 Active Problem Unspecified acute conjunctivitis 372.00 Active Problem Lumbago 724.2 Active Problem Unspecified conjunctivitis 372.30 A ctive Problem Blood in stool 578.1 Active Problem Acute sinusitis, unspecified 461.9 Active Medications Medication Code System Code Instructions Start Date End Date Status Dosage Amoxicillin [facility] [address]-11 500 MG Orally every 12 hrs August 01, 2015 August 08, 2015 1 tablet Tylenol [facility] [address]-83 325 MG Orally every 6 hrs 1 tablet as needed Procedures Procedure Coding System Code Date Office Visit, Est Pt., Level 3 CPT-4 01281 A pril 2015 STREP A ASSAY W/OPTIC CPT-4 50794 August 01, 2015 Vital Signs Date/Time: August 01, 2015 Temperature 99.4 F Weight 182.2 lbs Height 64 in BMI 31.27 Index Blood Pressure Diastolic 98 mmHg Blood Pressure Systolic 144 mmHg Cardiac Monitoring Heart Rate 100 bpm Results Name Result Date Reference Range Unit Abnormali ty Flag STREP A (IN HOUSE) ----STREP A positive [id number] ----Control + [id number] ----Lot # [id number] ----Exp date [id number] Summary Purpose [employer] Submission
--- OUTSIDE RECORDS SUMMARY | 2019-07-04 18:00 | XMS REPORT ---
Author Author Albaro Jett Doctor Organization [facility] Address Unknown Phone Unavailable Care Team Providers Care Gyro Mechanic Name Role Phone Migration, Doctor Unavailable Unavailable PROBLEMS Type Condition ICD9-CM Code [id number] Code Onset Dates Condition S tatus SNOMED Code Problem Abdominal pain, left lower quadrant 789.04 Active 607705278 Problem Diarrhea 787.91 Active 24143716 Problem Unspecified acute conjunctivitis 372.00 Active 02605434 Problem Acute left-sided low back pain with left-sided sciatica M54.42 Active 865101431 Problem Lumbago 724.2 Active 790820129 Problem Blood in stool 578.1 Active 46843 9008 Problem Acute sinusitis, unspecified 461.9 A ctive 65566746 Problem Unspecified conjunctivitis 372.30 Act lovely 7846640 ALLERGIES No Information ENCOUNTERS Encounter Location Date Diagnosis [facility] [address] [id number] [address] [place] [address] 20 Sep, 2016 Acute left-sided low back pa in with left-sided sciatica M54.42 [facility] [address] [id number] [address] [place] [address] 18 Jul, 2015 Strep pharyngitis J02.0 and Sore throat J02.9 [facility] [place] [address] [place] [phone] Jul, [facility] [place] [address] [id number] [address] [place] [phone] Jul, [facility] [place] [address] [id number] [address] [place] [phone] Nov, [facility] [place] [address] [facility] [id number] [address] [place] [phone] Nov, [facility] [place] [address] [id number] [address] [place] [phone] Nov, [facility] [address] [id number] [address] [place] [address], [place] [address] Nov, [facility] [address] [id number] [address] [place] [address], [place] [address] Nov, [facility] [address] [id number] [address] [place] [address], [place] [address] Nov, [facility] [address] [id number] [address] [place] [address], [place] [address] Jul, [facility] [address] [id number] [address] [place] [address], [place] [address] Jul, [facility] [address] [id number] [address] [place] [address], [place] [address] Jun, [facility] [address] [id number] [address] [place] [address], [place] [address] Jun, [facility] [address] [id number] [address] [place] [address], [place] [address] Apr, [facility] [address] [id number] [address] [place] [address], [place] [address] Apr, [facility] [address] [id number] [address] [place] [address], [place] [address] Apr, [facility] [address] [id number] [address] [place] [address], [place] [address] Apr, [facility] [address] [id number] [address] [place] [address], [place] [address] Apr, [facility] [address] [id number] [address] [place] [address], [place] [address] Apr, [facility] [address] [id number] [address] [place] [address], [place] [address] Mar, [facility] [address] [id number] [address] [place] [address], [place] [address] Feb, [facility] [address] [id number] [address] [place] [phone] 16 Feb, 2011 [facility] [place] [address] [facility] [id number] [address] [place] [phone] 14 Feb, 2011 [facility] [place] [address] [facility] [id number] [address] [place] [address] 14 Feb, 2011 [facility] [place] [address] [facility] [id number] [address] [place] [phone] 24 Jan, 2011 [facility] [place] [address] [facility] [id number] [address] [place] [phone] Nov, IMMUNIZATIONS No Known Immunizations SOCIAL HISTORY Never Assessed REASON FOR VISIT EMR-[facility] [place] PLAN OF CARE VITAL SIGNS MEDICATIONS No Known Medications RESULTS No Results PROCEDURES No Known procedures INSTRUCTIONS MEDICATIONS ADMINISTERED No Known Medications
--- OUTSIDE RECORDS SUMMARY | 2019-07-04 18:00 | XMS REPORT ---
Author Author Albaro Jett Doctor Organization [facility] Address Unknown Phone Unavailable Care Team Providers Care Superintendent Construction Name Role Phone Migration, Doctor Unavailable Unavailable PROBLEMS Type Condition ICD9-CM Code KFH68-ER Code Onset Dates Condition S tatus SNOMED Code Problem Abdominal pain, left lower quadrant 789.04 Active 370521617 Problem Diarrhea 787.91 Active 68515700 Problem Unspecified acute conjunctivitis 372.00 Active 52632573 Problem Acute left-sided low back pain with left-sided sciatica M54.42 Active 272215626 Problem Lumbago 724.2 Active 054274079 Problem Blood in stool 578.1 Active 77907 9008 Problem Acute sinusitis, unspecified 461.9 A ctive 38117504 Problem Unspecified conjunctivitis 372.30 Act lovely 1325324 ALLERGIES No Information ENCOUNTERS Encounter Location Date Diagnosis [facility] [address] [id number] [address] [place] [address] 20 Sep, 2016 Acute left-sided low back pa in with left-sided sciatica M54.42 [facility] [address] [id number] [address] [place] [address] 18 Jul, 2015 Strep pharyngitis J02.0 and Sore throat J02.9 [facility] [address] [place] [address] Jul, [facility] [address] [id number] [address] [place] [address] Jul, [facility] [address] [id number] [address] [place] [phone] Nov, [facility] [address] [facility] [id number] [address] [place] [phone] Nov, [facility] [address] [id number] [address] [place] [address] Nov, [facility] [address] [id number] [address] [place] [address], [place] [address] Nov, [facility] [address] [id number] [address] [place] [address], [place] [address] Nov, [facility] [address] [id number] [address] [place] [address], [place] [address] Nov, [facility] [address] [id number] [address] [place] [address], [place] [address] Jul, [facility] [address] [id number] [address] [place] [address], [place] [address] Jul, [facility] [address] [id number] [address] [place] [address], [place] [address] Jun, [facility] [address] [id number] [address] [place] [address], [place] [address] Jun, [facility] [address] [id number] [address] [place] [address], [place] [address] Apr, [facility] [address] [id number] [address] [place] [address], [place] [address] Apr, [facility] [address] [id number] [address] [place] [address], [place] [address] Apr, [facility] [address] [id number] [address] [place] [address], [place] [address] Apr, [facility] [address] [id number] [address] [place] [address], [place] [address] Apr, [facility] [address] [id number] [address] [place] [address], [place] [address] Apr, [facility] [address] [id number] [address] [place] [address], [place] [address] Mar, [facility] [address] [id number] [address] [place] [address], [place] [address] Feb, [facility] [address] [id number] [address] [place] [id number] 16 Feb, 2011 [facility] [address] [facility] [id number] [address] [place] [phone] 14 Feb, 2011 [facility] [address] [facility] [id number] [address] [place] [phone] 14 Feb, 2011 [facility] [address] [facility] [id number] [address] [place] [id number] 24 Jan, 2011 [facility] [address] [facility] [id number] [address] [place] [phone] Nov, IMMUNIZATIONS No Known Immunizations SOCIAL HISTORY Never Assessed REASON FOR VISIT EMR-[facility] [place] PLAN OF CARE VITAL SIGNS MEDICATIONS No Known Medications RESULTS No Results PROCEDURES No Known procedures INSTRUCTIONS MEDICATIONS ADMINISTERED No Known Medications
--- OUTSIDE RECORDS SUMMARY | 2019-07-04 18:00 | XMS REPORT ---
Author Author [employer]. Organization [employer] Address [address] [address] Care Team Providers Care Shipping & Receiving Lead Name Role Phone NO, LOCAL PHYSICIAN Unavailable Unavailable BRYANT LEAL Unavailable Unavailable NO, LOCAL PHYSICIAN Unavailable Unavailable NO, LOCAL PHYSICIAN Unavailable Unavailable DEVAN Chiu Unavailable Migration, Doctor Unavailable Unavailable Migration, Doctor Unavailable Unavailable Migration, Doctor Unavailable Unavailable Migration, Doctor Unavailable Unavailable Migration, Doctor Unavailable Unavailable LADARIUS RICO, JOHN Carrasco Unavailable Unavailable VALORIE RICO, GABRIELLE Nguyen Unavailable Unavailable BERRY RICO, MIRELLA Bey Unavailable Unavailable DANIELLA DENT DO Unavailable Unavailable BERRY RICO, MIRELLA Bey Unavailable Unavailable JOHN MATAMOROS Unavailable Unavailable Allergies Normalized Allergy Reported Date of Reaction(s) Care Provider Facility Allergy Type classification allergen Allergy Onset DA (13 Unclassified No Known Drug 04-20-2009 - no information MIRELLA SMART Not Available sources.) Allergies MD (62138) Medications The data below is from unstructured sources No Known Medications No Known Medications No Known Medications No Known Medications No Known Medications No Known Medications No Known Medications No Known Medications No Known Medications No Known Medications No Known Medications No Known Medications No Known Medications No Known Medications Problems Active Problems Problem Normalized Date of Normalized Normalized Provider Fac ility Classification Problem(s) Problem Problem Problem Sta tus Onset/Resoluti Duration on Diverticulosis Diverticulitis Chronic Active MIRELLA SMART [facility] Via and of colon [facility] diverticulitis (without Hospital - (9 sources.) mention of [place] hemorrhage) (83918) Translations: [ DVTRCLI OF LG INT W/O PERFORATION OR ABS] Other Elevated Episodic Active DANIELLA DENT DO [facility] Via circulatory blood-pressure Damaris disease (4 reading, Hospital - sources.) without [place] diagnosis of (09790) hypertension Inflammation; Other chronic Chronic Active GENARO Not Available infection of allergic BRUMAGDYMANN , (82702) eye (except conjunctivitis that caused by tuberculosis or sexually transmitteddis ease) (2 sources.) Other Personal Episodic Active DANIELLA DENT , DO [facility] Via gastrointestin history of Damaris al disorders other diseases Hospital - (4 sources.) of the [place] digestive () system Past or Other Problems Problem Normalized Date of Normalized Normalized Provider Fac ility Classification Problem(s) Problem Problem Problem Sta tus Onset/Resoluti Duration on Fluid and Acidosis Episodic Completed GABRIELLE EUGENE , [facility] Via electrolyte [facility] disorders (1 Hospital - source.) [place] () Allergic Contact Episodic Completed SANDRO Not Available reactions (1 dermatitis and ALVAREZ SILVA (69466) source.) other eczema, unspecified cause Genitourinary Dysuria Episodic Completed GABRIELLE EUGENE [facility] Via symptoms and [facility] ill-defined Hospital - conditions (5 [place] sources.) (20029) Fever of Fever, Episodic Completed JOHN [facility] Via unknown origin unspecified MD Damaris DURAND (6 sources.) Hospital - [place] () Headache; Headache Episodic Completed JOHN [facility] Via including MD Damaris DURAND migraine (3 Hospital - sources.) [place] ([address]) Other skin Rash and other Episodic Completed SANDRO Not Av ailable disorders (1 nonspecific ALVAREZ SILVA (62467) source.) skin eruption Other eye Redness or Episodic Completed GENARO Not Availab le disorders (2 discharge of [facility] , (42119) sources.) eye Administrative Social Episodic Completed MIRELLA SMART [facility] Via /social maladjustment [facility] admission (4 Hospital - sources.) [place] () Procedures The data below is from unstructured sourcesNo known history of procedures. No Known procedures No Known procedures No Known procedures No Known procedures No Known procedures No Known procedures No Known procedures No Known procedures No Known procedures No Known procedures Immunizations The data below is from unstructured sourcesNo immunization records. No Known Immunizations No Known Immunizations No Known Immunizations No Known Immunizations No Known Immunizations No Known Immunizations No Known Immunizations No Known Immunizations No Known Immunizations No Known Immunizations Results The data below is from unstructured sources No Results No Results No Results No Results No Results No Results No Results No Results No Results No Results No Results Vital Signs The data below is from unstructured sources Vital Response Date/Time Temperature (Fahrenheit) 99.1 degree s F (97.6 - 99.5) 12/05/2015 10:31pm Temperature (Calculated Celsius) 37. 73959 degrees C (36.4 - 37.5) 12/05/2015 10:31pm Pulse Rate (adult) 106 bpm (60 - 90) 12/05/2015 10:31pm Respiratory Rate 18 bpm (12 - 24) 12/05/2015 10:31pm O2 Sat by Pulse Oximetry 95 % (88 - 100) 12/05/2015 10:31pm Blood Pressure 149/103 mm Hg 12/05/2015 10:31pm Blood Pressure Mean 118 mm Hg 12/05/2015 10:31pm Pain Numeric Pain Scale 7 10:31pm Height (Feet) 5 feet 10:31pm Height (Inches) 2 inches 12/05/2015 10:31pm Height (Calculated Centimeters) 157. 210858 cm 12/05/2015 10:31pm Weight (Pounds) 180 pounds 12/05/2015 10:31pm Weight (Calculated Kilograms) 81.646 627 kilograms 12/05/2015 10:31pm Capillary Refill Capillary Refill Less Than 3 Seconds 12/05/2015 10:31pm Height 5 ft 2 in Weight 180 lb Body Mass Index 32.9 kg/m^2 Vital Response Date/Time Temperature (Fahrenheit) 98.2 degree s F (97.6 - 99.5) 12/31/2016 6:01pm Temperature (Calculated Celsius) 36. 72025 degrees C (36.4 - 37.5) 12/31/2016 6:01pm Pulse Rate (adult) 75 bpm (60 - 90) 12/31/2016 8:25pm Respiratory Rate 14 bpm (12 - 24) 12/31/2016 8:25pm O2 Sat by Pulse Oximetry 99 % (88 - 100) 12/31/2016 8:25pm Blood Pressure 137/96 mm Hg 12/31/2016 8:25pm Blood Pressure Mean 132 mm Hg 12/31/2016 6:01pm Pain Numeric Pain Scale 5-Moderate Pain 12/31/2016 6:01pm Height (Feet) 5 feet 6:01pm Height (Inches) 2 inches 12/31/2016 6:01pm Height (Calculated Centimeters) 157. 724842 cm 12/31/2016 6:01pm Height Method Stated 6:01pm Weight (Pounds) 180 pounds 12/31/2016 6:01pm Weight (Ounces) 8.0 oz 0 12/31/2016 6:01pm Weight (Calculated Grams) 79130.627 gm 12/31/2016 6:01pm Weight (Calculated Kilograms) 81.873 424 kilograms 12/31/2016 6:01pm Calculated BMI 32.92 6:01pm Weight Method Stated 6:01pm Capillary Refill Capillary Refill Less Than 3 Seconds 12/31/2016 6:01pm Interventions No Information Plan of Treatment The data below is from unstructured sources Discharge Date 12/06/15 3:14am Disposition 01 HOME, SELF-CARE Condition at Discharge Improved Instructions/Education Provided YESSENIA L SYNDROME Dehydration (ED) Fever in Adults (ED) Prescriptions See Medication Section Referrals NO,LOCAL PHYSICIAN - [facility] Physician Additional Instructions/Education Al l discharge instructions reviewed with patient and/or family. Voiced understanding. Follow-up with your Dr. in one to 2 days for recheck. Return for worse pain, fever, vomiting, weakness, breathing problems or other concerns as needed. You may take Tylenol or the generic acetaminophen 1000 mg every 6 hours as needed for fever or pain. Drink plenty of fluids. Return for worse pain, fever, vomiting, breathing problems, neck stiffness or pain or other concerns as needed. Discharge Date 12/31/16 8:27pm Disposition 01 HOME, SELF-CARE Condition at Discharge Improved Instructions/Education Provided Hear t Healthy Diet DASH Diet Chest Pain That Is Not Caused by the Heart (DC) High Blood Pressure (DC) Chest Pain (DC) Controlling Your Blood Pressure Through Lifestyle Costochondritis (DC) Prescriptions See Medication Section Referrals [facility] Additional Instructions/Education HO ME REST FOLLOW UP WITH [facility] THIS WEEK FOR FURTHER CARE RETURN TO ER IF SYMPTOMS WORSEN All discharge instructions reviewed with patient and/or family. Voiced understanding. Activity Details Follow Up prn Reason: Goals No Information Social History The data below is from unstructured sources History Response Recorde d Date/Time Hx Family Cancer N 11/14 11:00am History Response Recorde d Date/Time Alcohol Use Denies Use 0 08/30/12 8:57pm Recreational Drug Use N 08/30/12 8:57pm History Response Recorde d Date/Time Hx Family Cancer N 11/14 11:00am Hx Family Cardiac Disorders Y mother 11/14/10 11:00am Hx Family Myocardial Infarction Y 11/14/10 11:00am History Response Recorde d Date/Time Alcohol Use Denies Use 0 10/06/12 7:52pm Recreational Drug Use N 10/06/12 7:52pm Functional Status The data below is from unstructured sourcesNo functional status results.No functional status information available.No functional status information available. Mental Status No Information Encounters Encounter Normalized Encounter Encounter Diagnosis Care Provi rudolph Organization Date Type 11-13-2018 Emergency department no information no name (no madonna ne) no organization name patient visit (no phone) 12-31-2016 Emergency department no information no name (no [facility]) no organization name - patient visit (no phone) 12-31-2016 12-05-2015 Emergency department no information no name (no [facility] ne) no organization name - patient visit (no phone) 12-05-2015 09-20-2011 Emergency department no information no name (no madonna ne) no organization name - patient visit (no phone) 09-20-2011 11-14-2018 Evaluation and no information no name (no phone) n o organization name - management of (no phone) 11-17-2018 inpatient 11-13-2018 Evaluation and no information no name (no phone) n o organization name - management of (no phone) 11-17-2018 inpatient 08-14-2013 Evaluation and no information no name (no phone) n o organization name - management of (no phone) 08-16-2013 inpatient 08-14-2013 Evaluation and no information no name (no phone) n o organization name - management of (no phone) 08-16-2013 inpatient 05-22-2019 Patient encounter no information JOHN MATAMOROS ( no [facility] procedure phone) [facility] (no phone) 11-13-2018 Patient encounter no information no name (no phone) no organization name - procedure (no phone) 11-17-2018 12-31-2016 Patient encounter no information no name (no phone) no organization name procedure (no phone) Medical Equipment No Information Payers The data below is from unstructured sources Payer Name Policy Number Subscriber Name Relationship Self Pay Smith,Albaro A 01 Self / Same As Patient Advance Directives Directive Response Recor ded Date/Time Advance Directives No 10:31pm Health Care Power of Handkerchief Maker No 12/05/15 10:31pm Organ Donor No 12/05/15 10:31pm Resuscitation Status Full Code 12/05/15 10:31pm Directive Response Recor ded Date Advance Directives N 8:57pm Health Care Power of Handkerchief Maker N 08/30/12 8:57pm Organ Donor N 08/30/12 8 :57pm Directive Response Recor ded Date Advance Directives N 7:52pm Health Care Power of Handkerchief Maker N 10/06/12 7:52pm Organ Donor N 10/06/12 7 :52pm Directive Response Recor ded Date/Time Advance Directives No 6:01pm Health Care Power of Handkerchief Maker No 12/31/16 6:01pm Organ Donor No 12/31/16 6:01pm Resuscitation Status Full Code 12/31/16 6:01pm Discharge Instructions No hospital discharge instructions.No hospital discharge instruction information available. Summary Purpose [employer]ClinicalWorks Submission Additional Source Comments This clinical document has been generated using [employer] software that has been certified by the Office of the National Coordinator for Health Information Technology (ONC 15.99.04.3023.Diam.31.00.0.711644) and the National Committee for Retread Supervisor (NCQA, as an eMeasure certified technology). FOR RECORDS PERTAINING TO PATIENTS WHO ARE OR HAVE BEEN ENROLLED IN A CHEMICAL D EPENDENCY/SUBSTANCE ABUSE PROGRAM, SOME INFORMATION MAY BE OMITTED. This clinica l summary was aggregated from multiple sources. Caution should be exercised in using it in the provision of clinical care. This summary normalizes information from multiple sources, and as a consequence, information in this document may ma terially change the coding, format and clinical context of patient data. In carlin tion, data may be omitted in some cases. CLINICAL DECISIONS SHOULD BE BASED ON T HE PRIMARY CLINICAL RECORDS. [employer]. provides no warranty or guara ntee of the accuracy or completeness of information in this document.The followi ng information is based on time limited clinical information UNRECOGNIZED CONTENT PROVIDED BELOW FOR UNRECOGNIZED SECTION REASON FOR VISIT FMT-[id number]-AccXWZ-XhlVRW-Det
--- OUTSIDE RECORDS SUMMARY | 2019-07-04 18:00 | XMS REPORT ---
Author Author Albaro Jett Doctor Organization [facility] Address Unknown Phone Unavailable Care Team Providers Care Phone Engineer Name Role Phone Migration, Doctor Unavailable Unavailable PROBLEMS Type Condition ICD9-CM Code [id number] Code Onset Dates Condition S tatus SNOMED Code Problem Abdominal pain, left lower quadrant 789.04 Active 278251631 Problem Diarrhea 787.91 Active 56833799 Problem Unspecified acute conjunctivitis 372.00 Active 08468734 Problem Acute left-sided low back pain with left-sided sciatica M54.42 Active 158201768 Problem Lumbago 724.2 Active 752258691 Problem Blood in stool 578.1 Active 93243 9008 Problem Acute sinusitis, unspecified 461.9 A ctive 25445245 Problem Unspecified conjunctivitis 372.30 Act lovely [id number] ALLERGIES No Information ENCOUNTERS Encounter Location Date Diagnosis [facility] [address] [id number] [address] [place] [phone] 20 Sep, 2016 Acute left-sided low back pa in with left-sided sciatica M54.42 [facility] [address] [id number] [address] [place] [id number] 18 Jul, 2015 Strep pharyngitis J02.0 and Sore throat J02.9 [facility] [address] [place] [phone] Jul, [facility] [address] [id number] [address] [place] [phone] Jul, [facility] [address] [id number] [address] [place] [phone] Nov, [facility] [address] [facility] [id number] [address] [place] [phone] Nov, [facility] [address] [id number] [address] [place] [phone] Nov, [facility] [address] [id number] [address] [place] [address], [place] [address] Nov, [facility] [address] [id number] [address] [place] [address], [place] [address] Nov, [facility] [address] [id number] [address] [place] [address], [place] [address] Nov, [facility] [address] [id number] [address] [place] [address], [place] [address] Jul, [facility] [address] [id number] [address] [place] [address], [place] [address] Jul, [facility] [address] [id number] [address] [place] [address], [place] [address] Jun, [facility] [address] [id number] [address] [place] [address], [place] [address] Jun, [facility] [address] [id number] [address] [place] [address], [place] [address] Apr, [facility] [address] [id number] [address] [place] [address], [place] [address] Apr, [facility] [address] [id number] [address] [place] [address], [place] [address] Apr, [facility] [address] [id number] [address] [place] [address], [place] [address] Apr, [facility] [address] [id number] [address] [place] [address], [place] [address] Apr, [facility] [address] [id number] [address] [place] [address], [place] [address] Apr, [facility] [address] [id number] [address] [place] [address], [place] [address] Mar, [facility] [address] [id number] [address] [place] [address], [place] [address] Feb, [facility] [address] [id number] [address] [place] [phone] 16 Feb, 2011 [facility] [address] [facility] [id number] [address] [place] [phone] Feb, [facility] [address] [facility] [id number] [address] [place] [phone] 14 Feb, 2011 [facility] [address] [facility] [id number] [address] [place] [phone] Jan, [facility] [address] [facility] [id number] [address] [place] [phone] Nov, IMMUNIZATIONS No Known Immunizations SOCIAL HISTORY Never Assessed REASON FOR VISIT [facility] [place] PLAN OF CARE VITAL SIGNS MEDICATIONS Medication Instructions Dosage Frequency Start Date End Date Duration S tatus cromolyn 4 % 1 drop by Ophthalmic route 4 times per da y for 7 day(s) Jul, Active Loratadine 10 mg 1 tablet by Oral route 1 time per day 2 0 Jul, 2011 Active Ketotifen Fumarate by Ophthalmic route Jul, Active Imodium A-D 2 mg 2 Tablet by Oral route 1 time per day PRNdiarrhea Nov, Active RESULTS No Results PROCEDURES No Known procedures INSTRUCTIONS MEDICATIONS ADMINISTERED No Known Medications
--- OUTSIDE RECORDS SUMMARY | 2019-07-04 18:00 | XMS REPORT ---
Author Author Albaro Jett Doctor Organization [facility] Address Unknown Phone Unavailable Care Team Providers Care Ruby Developer Name Role Phone Migration, Doctor Unavailable Unavailable PROBLEMS Type Condition ICD9-CM Code [id number] Code Onset Dates Condition S tatus SNOMED Code Problem Abdominal pain, left lower quadrant 789.04 Active 646740135 Problem Diarrhea 787.91 Active 47284605 Problem Unspecified acute conjunctivitis 372.00 Active 17373256 Problem Acute left-sided low back pain with left-sided sciatica M54.42 Active 895167871 Problem Lumbago 724.2 Active 222994694 Problem Blood in stool 578.1 Active 52480 9008 Problem Acute sinusitis, unspecified 461.9 A ctive 38661330 Problem Unspecified conjunctivitis 372.30 Act lovely [id number] ALLERGIES No Information ENCOUNTERS Encounter Location Date Diagnosis [facility] [address] [id number] [address] [place] [phone] 20 Sep, 2016 Acute left-sided low back pa in with left-sided sciatica M54.42 [facility] [address] [id number] [address] [place] [id number] 18 Jul, 2015 Strep pharyngitis J02.0 and Sore throat J02.9 [facility] [address] [place] [phone] Jul, [facility] [address] [id number] [address] [place] [phone] Jul, [facility] [address] [id number] [address] [place] [phone] Nov, [facility] [address] [facility] [id number] [address] [place] [phone] Nov, [facility] [address] [id number] [address] [place] [phone] Nov, [facility] [address] [id number] [address] [place] [address], [place] [address] Nov, [facility] [address] [id number] [address] [place] [address], [place] [address] Nov, [facility] [address] [id number] [address] [place] [address], [place] [address] Nov, [facility] [address] [id number] [address] [place] [address], [place] [address] Jul, [facility] [address] [id number] [address] [place] [address], [place] [address] Jul, [facility] [address] [id number] [address] [place] [address], [place] [address] Jun, [facility] [address] [id number] [address] [place] [address], [place] [address] Jun, [facility] [address] [id number] [address] [place] [address], [place] [address] Apr, [facility] [address] [id number] [address] [place] [address], [place] [address] Apr, [facility] [address] [id number] [address] [place] [address], [place] [address] Apr, [facility] [address] [id number] [address] [place] [address], [place] [address] Apr, [facility] [address] [id number] [address] [place] [address], [place] [address] Apr, [facility] [address] [id number] [address] [place] [address], [place] [address] Apr, [facility] [address] [id number] [address] [place] [address], [place] [address] Mar, [facility] [address] [id number] [address] [place] [address], [place] [address] Feb, [facility] [address] [id number] [address] [place] [phone] 16 Feb, 2011 [facility] [address] [facility] [id number] [address] [place] [phone] 14 Feb, 2011 [facility] [address] [facility] [id number] [address] [place] [phone] 14 Feb, 2011 [facility] [address] [facility] [id number] [address] [place] [phone] 24 Jan, 2011 [facility] [address] [facility] [id number] [address] [place] [phone] Nov, IMMUNIZATIONS No Known Immunizations SOCIAL HISTORY Never Assessed REASON FOR VISIT [facility] PLAN OF CARE VITAL SIGNS MEDICATIONS No Known Medications RESULTS No Results PROCEDURES No Known procedures INSTRUCTIONS MEDICATIONS ADMINISTERED No Known Medications
--- OUTSIDE RECORDS SUMMARY | 2019-07-04 18:01 | XMS REPORT | Continuity of Care Document ---
Author Author [facility] Organization [facility] Address Unknown Phone Unavailable Care Team Providers Care Armed Security Officer Name Role Phone NO, LOCAL PHYSICIAN PP Unavailable Insurance Providers Payer Name Policy Number Subscriber Name Relationship Self Pay Albaor Garza Self / Same As Patient Advance Directives Directive Response Recor ded Date Advance Directives N 8:57pm Health Care Power of Trade Union Secretary N 08/30/12 8:57pm Organ Donor N 08/30/12 8 :57pm Problems No Known Problems or Medical conditions. Family History History Response Recorde d Date/Time Hx Family Cancer N 11/14 11:00am Social History History Response Recorde d Date/Time Alcohol Use Denies Use 0 08/30/12 8:57pm Recreational Drug Use N 08/30/12 8:57pm Allergies, Adverse Reactions, Alerts Allergen Type Severity Reaction Last Updated No Known Drug Allergies 04/20/09 Medications Medication Dose Units Route Sig Qty Days Olopatadine Hcl (Pataday) 2.5 Ml OP DAILY 30 Prednisone 20 Mg PO DAILY 5 Loratadine 10 Mg PO DAILY 30 Hyoscyamine Sulfate (Hyoscyamine Er 0.375 Mg) 1 Each PO BID 20 Acetaminophen/Hydrocodone Bitart (Vicodin 5-500 Tablet ) 1 - 2 Each PO Q4HR PRN 14 Ciprofloxacin (Cipro) 1 Tab PO BID 7 Metronidazole (Metronidazole 500 Mg) 1 Each PO TID 7 Hydrocodone Bitartrate/Ibuprofen (Vicoprofen 200-7.5 M g Tab) 1 - 2 Each OP Q 4 - 6 HRS PRN 20 Response Recorded Date/Time Status not known Unknown Results Test Date Result Interp. Ref. Range Alanine Aminotransferase (ALT/SGPT) September 20, 2011 4:14pm 86 U/L H 30-65 Albumin September 20, 2011 4:14pm 3.8 G/DL N 3.4-5.0 Alkaline Phosphatase September 20, 2011 4:14pm 149 U/L H 50-136 Amylase Level July 04, 2011 7:44pm 52 U/L N 25-115 Aspartate Amino Transf (AST/SGOT) Ju 2011 4:14pm 37 U/L N 15-37 BUN/Creatinine Ratio September 20, 2011 4:14pm 16 - Basophils # (Auto) September 20, 2011 4:14pm 0.0 10^3/uL N 0.0-0.1 Basophils (%) (Auto) September 20, 2011 4:14pm 0 % N 0-10 Blood Urea Nitrogen September 20, 2011 4:14pm 14 MG/DL N 7-18 C-Reactive Protein November 19, 2010 7:00am 12.5 MG/DL H 0.2-0.9 Calcium Level September 20, 2011 4:14pm 9.2 MG/DL N 8.5-10.1 Carbon Dioxide Level September 20, 2011 4:14pm 27 MMOL/L N 21-32 Chloride Level September 20, 2011 4:14pm 102 MMOL/L N 101-110 Creatinine September 20, 2011 4:14pm 0.9 MG/DL N 0.6-1.3 Eosinophils # (Auto) September 20, 2011 4:14pm 0.2 10^3/uL N 0.0-0.3 Eosinophils (%) (Auto) September 20, 2011 4:14p m 2 % N 0-10 Glucose Level September 20, 2011 4:14pm 97 MG/DL N 74-106 Hematocrit September 20, 2011 4:14pm 43 % N 40-54 Hemoglobin September 20, 2011 4:14pm 15.6 G/DL N 13.3-17.7 Hepatitis A IgM Antibody October 02 10 2:30am NR - Hepatitis B Core IgM Antibody September 142009 2:30am NR - Hepatitis B Surface Antigen October 02, 2009 2:30am NR - Hepatitis C Antibody October 02, 2009 2:30am NR - Lipase September 20, 2011 4:14pm 123 U/L N 73-393 Lymphocytes # (Auto) September 20, 2011 4:14pm 2.1 X 10^3 N 1.0-4.0 Lymphocytes (%) (Auto) September 20, 2011 4:14p m 27 % N 12-44 Mean Corpuscular Hemoglobin September 20, 2011 4:14pm 32 PG N 25-34 Mean Corpuscular Hemoglobin Concent September 20, 2011 4:14pm 36 G/DL N 32-36 Mean Corpuscular Volume September 19 2 4:14pm 87 FL N 80-99 Mean Platelet Volume September 20, 2011 4:14pm 10.0 FL N 7.4-10.4 Monocytes # (Auto) September 20, 2011 4:14pm 0.9 X 10^3 N 0.0-1.0 Monocytes (%) (Auto) September 20, 2011 4:14pm 11 % N 0-12 Neutrophils # (Auto) September 20, 2011 4:14pm 4.7 X 10^3 N 1.8-7.8 Neutrophils (%) (Auto) September 20, 2011 4:14p m 60 % N 42-75 Platelet Count September 20, 2011 4:14pm 276 10^3/uL N 130-400 Potassium Level September 20, 2011 4:14pm 3.5 MMOL/L L 3.6-5.0 Red Blood Count September 20, 2011 4:14pm 4.93 10^6/uL N 4.35-5.85 Red Cell Distribution Width September 20, 2011 4:14pm 12.6 % N 10.0-14.5 Sodium Level September 20, 2011 4:14pm 137 MMOL/L N 135-145 Total Bilirubin September 20, 2011 4:14pm 0.6 MG/DL N 0.0-1.0 Total Protein September 20, 2011 4:14pm 7.7 G/DL N 6.4-8.2 Urine Amorphous Sediment September 19 12 4:18pm MOD PAVEL URATES H - Urine Bacteria September 20, 2011 4:18pm FEW H - Urine Bilirubin September 20, 2011 4:18pm NEGATIVE - Urine Casts September 20, 2011 4:18pm NONE - Urine Clarity September 20, 2011 4:18pm SLIGHTLY CLOUDY - Urine Color September 20, 2011 4:18pm YELLOW - Urine Crystals September 20, 2011 4:18pm PRESENT H - Urine Culture Indicated September 19 2 4:18pm YES - Urine Glucose (UA) September 20, 2011 4:18pm NEGATIVE - Urine Ketones September 20, 2011 4:18pm NEGATIVE - Urine Leukocyte Esterase Joanie 07, 20 12 4:18pm NEGATIVE - Urine Mucus September 20, 2011 4:18pm SMALL H - Urine Nitrite September 20, 2011 4:18pm NEGATIVE - Urine Protein September 20, 2011 4:18pm NEGATIVE - Urine RBC September 20, 2011 4:18pm NONE /HPF - Urine Specific [place] September 20, 2011 4:18p m 1.020 - Urine Squamous Epithelial Cells September 20, 2011 4:18pm RARE - Urine Urobilinogen September 20, 2011 4:18pm NORMAL MG/DL - Urine WBC September 20, 2011 4:18pm NONE /HPF - Urine pH September 20, 2011 4:18pm 6.5 - White Blood Count September 20, 2011 4:14pm 7.8 10^3/uL N 4.3-11.0 Estimat Glomerular Filtration Rate J 2011 4:14pm > 60 - Stool Occult Blood Immunoassay Octob er 2009 2:20pm NEGATIVE - Urine RBC (Auto) September 20, 2011 4:18pm NEGATIVE - Procedures Procedure Code Date COLONOSCOPY AND BIOPSY 75302 01/22/11 COLONOSCOPY AND BIOPSY [id number] 12/11/11 Blood Culture 11/15/10 Ova and Parasites 09/14 Urine Culture 09/20/11 Encounters Encounter Location Date/ Time Departed Emergency Room [facility] 08/30/12 8:46pm Discharged Inpatient [facility] 11/14/10 10:47am
--- OUTSIDE RECORDS SUMMARY | 2019-07-04 18:01 | XMS REPORT | Continuity of Care Document ---
Author Organization Unknown Address Unknown Phone Unavailable Allergies Active Description Code Type Severity Reaction Onset Reported/Identified Relationship to Patient Clinical Status Yes No Known Drug Allergies [id number] Drug Allergy Mild N/A 04/20/2009 Medications There is no data. Problems Date Dx Coded Attending Type Code Diagnosis Diagnosed By 11/19/2010 Ot 562.11 DIV ERTICULITIS COLON (W/O MENT OF HEMORR 01/22/2011 Ot 558.9 PATTI NF GASTROENTERIT NEC 02/25/2011 Ot 815.00 FX METACARPAL NOS-CLOSED 02/25/2011 Ot 959.4 HAND INJURY NOS 02/25/2011 Ot E000.8 OTH ER EXTERNAL CAUSE STATUS 02/25/2011 Ot E849.0 ACC IDENT IN HOME 02/25/2011 Ot E917.4 STA T OB W/O SUB FALL NEC 07/04/2011 Ot 562.11 DIV ERTICULITIS COLON (W/O MENT OF HEMORR 07/04/2011 Ot 789.00 ABD OMINAL PAIN, UNSPECIFIED SITE 09/20/2011 Ot 789.04 ABD OMINAL PAIN, LEFT LOWER QUADRANT 12/11/2011 Ot 558.9 PATTI NF GASTROENTERIT NEC 08/30/2012 NNEKA RICO, GENARO Driscoll Ot 372.14 CHR ALLRG CONJUNCTIV NEC 08/30/2012 GENARO EARLY MD Ot 379.93 REDNESS/DISCHARGE OF EYE 10/06/2012 SANDRO KING Ot 692.9 DERMATITIS NOS 10/06/2012 SANDRO KING Ot 782.1 NONSPECIF SKIN ERUPT NEC 08/16/2013 MIRELLA SMART MD Ot 562.11 DIVERTICULITIS COLON (W/O MENT OF HEMORR 08/16/2013 MIRELLA SMART MD Ot V62 .4 SOCIAL MALADJUSTMENT 12/05/2015 Ot 558.9 PATTI NF GASTROENTERIT NEC 12/05/2015 Ot V72.84 EXA M PRE- OPERATIVE NOS 12/06/2015 LADARIUS RICO, JOHN Carrasco Ot R50.9 FEVER, UNSPECIFIED 12/06/2015 LADARIUS RICO, JOHN Carrasco Ot R51 HEADACHE 12/06/2015 Ot 558.9 PATTI NF GASTROENTERIT NEC 12/06/2015 Ot V72.84 EXA M PRE- OPERATIVE NOS 12/07/2015 LADARIUS RICO, JOHN Carrasco Ot R50.9 FEVER, UNSPECIFIED 12/07/2015 LADARIUS RICO, JOHN Carrasco Ot R51 HEADACHE 12/31/2016 Ot V72.84 EXA M PRE- OPERATIVE NOS 12/31/2016 FILIPE DO, DANIELLA K Ot R03.0 ELEVATED BLOOD-PRESSURE READING, W/O EDNA 12/31/2016 FILIPE DO, DANIELLA K Ot R07.89 OTHER CHEST PAIN 12/31/2016 FILIPE DO, DANIELLA K Ot Z87.19 PERSONAL HISTORY OF OTHER DISEASES OF TH 12/31/2016 Ot V72.84 EXA M PRE- OPERATIVE NOS 01/02/2017 FILIPE DO, DANIELLA K Ot R03.0 ELEVATED BLOOD-PRESSURE READING, W/O EDNA 01/02/2017 FILIPE DO, DANIELLA K Ot R07.89 OTHER CHEST PAIN 01/02/2017 FILIPE DO, DANIELLA K Ot Z87.19 PERSONAL HISTORY OF OTHER DISEASES OF TH 01/02/2017 FILIPE DO, DANIELLA K Ot R03.0 ELEVATED BLOOD-PRESSURE READING, W/O EDNA 01/02/2017 FILIPE DO, DANIELLA K Ot R07.89 OTHER CHEST PAIN 01/02/2017 FILIPE DO, DANIELLA K Ot Z87.19 PERSONAL HISTORY OF OTHER DISEASES OF TH 11/17/2018 GABRIELLE EUGENE MD Ot K57. 32 DVTRCLI OF LG INT W/O PERFORATION OR ABS 11/17/2018 GABRIELLE EUGENE MD Ot R30. 0 DYSURIA 11/17/2018 GABRIELLE EUGENE MD Ot E87. 2 ACIDOSIS 11/17/2018 GABRIELLE EUGENE MD Ot K57. 32 DVTRCLI OF LG INT W/O PERFORATION OR ABS 11/17/2018 GABRIELLE EUGENE MD Ot R30. 0 DYSURIA Procedures There is no data. Results Test Result Range Complete blood count (CBC) with automate d white blood cell (WBC) differential - 12/05/15 23:25 Blood leukocytes automated count (number/volume) 14.5 10*3/uL 4.3-11.0 Blood erythrocytes automated count (number/volume) 5.06 10*6/uL 4.35-5.85 Venous blood hemoglobin measurement (mass/volume) 15.7 g/dL 13.3-17.7 Blood hematocrit (volume fraction) 44 % 40-54 Automated erythrocyte mean corpuscular volume 87 [ foz_us] 80-99 Automated erythrocyte mean corpuscular h emoglobin (mass per erythrocyte) 31 pg 25-34 Automated erythrocyte mean corpuscular h emoglobin concentration measurement (mass/volume) 36 g/dL 32-36 Automated erythrocyte distribution width ratio 12. 1 % 10.0- 14.5 Automated blood platelet count (count/volume) 250 10*3/uL 130-400 Automated blood platelet mean volume measurement 9.9 [foz_us] 7.4-10.4 Automated blood neutrophils/100 leukocytes 80 % 42-75 Automated blood lymphocytes/100 leukocytes 11 % 12-44 Blood monocytes/100 leukocytes 9 % 0-12 Automated blood eosinophils/100 leukocytes 0 % 0-10 Automated blood basophils/100 leukocytes 0 % 0-10 Blood neutrophils automated count (number/volume) 11.6 10*3 1.8-7.8 Blood lymphocytes automated count (number/volume) 1.6 10*3 1.0-4.0 Blood monocytes automated count (number/volume) 1. 3 10*3 0.0-1.0 Automated eosinophil count 0.1 10*3/uL 0 .0-0.3 Automated blood basophil count (count/volume) 0.0 10*3/uL 0.0-0.1 Blood manual differential performed dete ction - 12/05/15 23:25 Blood monocytes/100 leukocytes 4 % NRG Manual blood segmented neutrophils/100 leukocytes 84 % NRG Blood band neutrophils/100 leukocytes 1 % NRG Manual blood lymphocytes/100 leukocytes 8 % NRG Manual eosinophils/100 leukocytes in nose 0 % NRG Manual blood basophils/100 leukocytes 0 % NRG Blood lymphocytes variant/100 leukocytes 3 % NRG Blood erythrocyte morphology finding identification NORMAL NRG Influenza virus A and B antigen detectio n - 12/05/15 23:25 FLU RESULT NEGATIVE FOR INFLUENZA A AND B ANTIGENS BY IA NRG Comprehensive metabolic panel - 12/05/15 23:25 Serum or plasma sodium measurement (moles/volume) 134 mmol/L 135-145 Serum or plasma potassium measurement (moles/volume) 3.2 mmol/L 3.6-5.0 Serum or plasma chloride measurement (moles/volume) 101 mmol/L 98-107 Carbon dioxide 21 mmol/L 21-32 Serum or plasma anion gap determination (moles/volume) 12 mmol/L 5-14 Serum or plasma urea nitrogen measurement (mass/volume ) 13 mg/dL 7-18 Serum or plasma creatinine measurement (mass/volume) 0.77 mg/dL 0.60-1.30 Serum or plasma urea nitrogen/creatinine mass ratio 17 NRG Serum or plasma creatinine measurement w ith calculation of estimated glomerular filtration rate > NRG Serum or plasma glucose measurement (mass/volume) 128 mg/dL 70-105 Serum or plasma calcium measurement (mass/volume) 9.6 mg/dL 8.5-10.1 Serum or plasma total bilirubin measurement (mass/volu me) 0.5 mg/dL 0.1-1.0 Serum or plasma alkaline phosphatase ian surement (enzymatic activity/volume) 114 U/L 40-136 Serum or plasma aspartate aminotransfera se measurement (enzymatic activity/volume) 63 U/L 5-34 Serum or plasma alanine aminotransferase measurement (enzymatic activity/volume) 74 U/L 0-55 Serum or plasma protein measurement (mass/volume) 7.2 g/dL 6.4-8.2 Serum or plasma albumin measurement (mass/volume) 4.0 g/dL 3.2-4.5 Complete blood count (CBC) with automate d white blood cell (WBC) differential - 12/31/16 18:05 Blood leukocytes automated count (number/volume) 12.1 10*3/uL 4.3-11.0 Blood erythrocytes automated count (number/volume) 5.12 10*6/uL 4.35-5.85 Venous blood hemoglobin measurement (mass/volume) 15.6 g/dL 13.3-17.7 Blood hematocrit (volume fraction) 45 % 40-54 Automated erythrocyte mean corpuscular volume 88 [ foz_us] 80-99 Automated erythrocyte mean corpuscular h emoglobin (mass per erythrocyte) 31 pg 25-34 Automated erythrocyte mean corpuscular h emoglobin concentration measurement (mass/volume) 35 g/dL 32-36 Automated erythrocyte distribution width ratio 12. 3 % 10.0- 14.5 Automated blood platelet count (count/volume) 360 10*3/uL 130-400 Automated blood platelet mean volume measurement 9.8 [foz_us] 7.4-10.4 Automated blood neutrophils/100 leukocytes 61 % 42-75 Automated blood lymphocytes/100 leukocytes 28 % 12-44 Blood monocytes/100 leukocytes 8 % 0-12 Automated blood eosinophils/100 leukocytes 2 % 0-10 Automated blood basophils/100 leukocytes 0 % 0-10 Blood neutrophils automated count (number/volume) 7.4 10*3 1.8-7.8 Blood lymphocytes automated count (number/volume) 3.4 10*3 1.0-4.0 Blood monocytes automated count (number/volume) 1. 0 10*3 0.0-1.0 Automated eosinophil count 0.3 10*3/uL 0 .0-0.3 Automated blood basophil count (count/volume) 0.1 10*3/uL 0.0-0.1 PT panel in platelet poor plasma by coag ulation assay - 12/31/16 18:05 Prothrombin time (PT) in platelet poor plasma by coagu lation assay 14.8 s 12.2-14.7 INR in platelet poor plasma or blood by coagulation as say 1.2 0.8-1.4 Activated partial thromboplastin time (a PTT) in platelet poor plasma bycoagulation assay - 12/31/16 18:05 Activated partial thromboplastin time (a PTT) in platelet poor plasma bycoagulation assay 33 s 24-35 Comprehensive metabolic panel - 12/31/16 18:05 Serum or plasma sodium measurement (moles/volume) 139 mmol/L 135-145 Serum or plasma potassium measurement (moles/volume) 3.3 mmol/L 3.6-5.0 Serum or plasma chloride measurement (moles/volume) 102 mmol/L 98-107 Carbon dioxide 26 mmol/L 21-32 Serum or plasma anion gap determination (moles/volume) 11 mmol/L 5-14 Serum or plasma urea nitrogen measurement (mass/volume ) 11 mg/dL 7-18 Serum or plasma creatinine measurement (mass/volume) 0.84 mg/dL 0.60-1.30 Serum or plasma urea nitrogen/creatinine mass ratio 13 NRG Serum or plasma creatinine measurement w ith calculation of estimated glomerular filtration rate > NRG Serum or plasma glucose measurement (mass/volume) 96 mg/dL 70-105 Serum or plasma calcium measurement (mass/volume) 9.4 mg/dL 8.5-10.1 Serum or plasma total bilirubin measurement (mass/volu me) 0.5 mg/dL 0.1-1.0 Serum or plasma alkaline phosphatase ain surement (enzymatic activity/volume) 110 U/L 40-136 Serum or plasma aspartate aminotransfera se measurement (enzymatic activity/volume) 41 U/L 5-34 Serum or plasma alanine aminotransferase measurement (enzymatic activity/volume) 77 U/L 0-55 Serum or plasma protein measurement (mass/volume) 7.9 g/dL 6.4-8.2 Serum or plasma albumin measurement (mass/volume) 4.6 g/dL 3.2-4.5 Magnesium - 12/31/16 18:05 Magnesium 2.1 mg/dL 1.8-2.4 Serum or plasma creatine kinase measurem ent (enzymatic activity/volume) - 12/31/16 18:05 Serum or plasma creatine kinase measurem ent (enzymatic activity/volume) 165 U/L 30-200 Serum or plasma creatine kinase MB measu rement (enzymatic activity/volume) - 12/31/16 18:05 Serum or plasma creatine kinase MB measu rement (enzymatic activity/volume) 1.2 ng/mL <6.6 Serum or plasma troponin i.cardiac measu rement (mass/volume) - 12/31/16 18:05 Serum or plasma troponin i.cardiac measurement (mass/v olume) < ng/mL <0.30 Serum or plasma amylase measurement (enz ymatic activity/volume) - 12/31/16 18:05 Serum or plasma amylase measurement (enzymatic activit y/volume) 47 U/L 25-125 Serum or plasma lithium measurement (mol es/volume) - 12/31/16 18:05 BNP level < pg/mL <100.0 Lipase - 12/31/16 18:05 Lipase 16 U/L 8-78 Acute hepatitis panel - 12/31/16 18:05 Confirmatory quantitative serum or plasm a hepatitis B virus surface antigen measurement Non-Reactive Non-Reactive Hepatitis A virus IgM antibody assay Non-Reactive Non- Reactive Hepatitis B virus core IgM antibody assay Non-Reac tive Non- Reactive Serum hepatitis C virus antibody detection Non-Juli ctive Non-Reactive Complete urinalysis with reflex to cultu re - 12/31/16 19:55 Urine color determination YELLOW NRG Urine clarity determination CLEAR NR G Urine pH measurement by test strip 7 5-9 Specific gravity of urine by test strip 1.010 1.016-1.022 Urine protein assay by test strip, semi-quantitative NEGATIVE NEGATIVE Urine glucose detection by automated test strip NE GATIVE NEGATIVE Erythrocytes detection in urine sediment by light micr oscopy NEGATIVE NEGATIVE Urine ketones detection by automated test strip NE GATIVE NEGATIVE Urine nitrite detection by test strip NEGATIVE NEGATIVE Urine total bilirubin detection by test strip NEGA TIVE NEGATIVE Urine urobilinogen measurement by automated test strip (mass/volume) NORMAL NORMAL Urine leukocyte esterase detection by dipstick NEG ATIVE NEGATIVE Automated urine sediment erythrocyte cou nt by microscopy (number/high power field) NONE NRG Automated urine sediment leukocyte count by microscopy (number/high power field) NONE NRG Bacteria detection in urine sediment by light microsco py NEGATIVE NRG Squamous epithelial cells detection in u rine sediment by light microscopy RARE NRG Crystals detection in urine sediment by light microsco py NONE NRG Casts detection in urine sediment by light microscopy NONE NRG Mucus detection in urine sediment by light microscopy NEGATIVE NRG Complete urinalysis with reflex to culture NO NRG Urine drug screening test - 12/31/16 19: 55 Urine phencyclidine detection by screening method NEGATIVE NEGATIVE Urine benzodiazepines detection by screening method NEGATIVE NEGATIVE Urine cocaine detection NEGATIVE NEGATI VE Urine amphetamines detection by screening method N EGATIVE NEGATIVE Urine methamphetamine detection by screening method NEGATIVE NEGATIVE Urine cannabinoids detection by screening method N EGATIVE NEGATIVE Urine opiates detection by screening method NEGATI VE NEGATIVE Urine barbiturates detection NEGATIVE N EGATIVE Screening urine tricyclic antidepressants detection NEGATIVE NEGATIVE Urine methadone detection by screening method NEGA TIVE NEGATIVE Urine oxycodone detection NEGATIVE NEGA TIVE Urine propoxyphene detection NEGATIVE N EGATIVE Complete blood count (CBC) with automate d white blood cell (WBC) differential - 11/14/18 00:14 Blood leukocytes automated count (number/volume) 15.9 10*3/uL 4.3-11.0 Blood erythrocytes automated count (number/volume) 5.08 10*6/uL 4.35-5.85 Venous blood hemoglobin measurement (mass/volume) 15.4 g/dL 13.3-17.7 Blood hematocrit (volume fraction) 44 % 40-54 Automated erythrocyte mean corpuscular volume 87 [ foz_us] 80-99 Automated erythrocyte mean corpuscular h emoglobin (mass per erythrocyte) 30 pg 25-34 Automated erythrocyte mean corpuscular h emoglobin concentration measurement (mass/volume) 35 g/dL 32-36 Automated erythrocyte distribution width ratio 12. 0 % 10.0- 14.5 Automated blood platelet count (count/volume) 272 10*3/uL 130-400 Automated blood platelet mean volume measurement 10.5 [foz_us] 7.4-10.4 Automated blood neutrophils/100 leukocytes 82 % 42-75 Automated blood lymphocytes/100 leukocytes 9 % 12-44 Blood monocytes/100 leukocytes 9 % 0-12 Automated blood eosinophils/100 leukocytes 0 % 0-10 Automated blood basophils/100 leukocytes 0 % 0-10 Blood neutrophils automated count (number/volume) 13.0 10*3 1.8-7.8 Blood lymphocytes automated count (number/volume) 1.5 10*3 1.0-4.0 Blood monocytes automated count (number/volume) 1. 4 10*3 0.0-1.0 Automated eosinophil count 0.1 10*3/uL 0 .0-0.3 Automated blood basophil count (count/volume) 0.0 10*3/uL 0.0-0.1 Comprehensive metabolic panel - 11/14/18 00:14 Serum or plasma sodium measurement (moles/volume) 135 mmol/L 135-145 Serum or plasma potassium measurement (moles/volume) 3.9 mmol/L 3.6-5.0 Serum or plasma chloride measurement (moles/volume) 103 mmol/L 98-107 Carbon dioxide 20 mmol/L 21-32 Serum or plasma anion gap determination (moles/volume) 12 mmol/L 5-14 Serum or plasma urea nitrogen measurement (mass/volume ) 10 mg/dL 7-18 Serum or plasma creatinine measurement (mass/volume) 0.77 mg/dL 0.60-1.30 Serum or plasma urea nitrogen/creatinine mass ratio 13 NRG Serum or plasma creatinine measurement w ith calculation of estimated glomerular filtration rate > NRG Serum or plasma glucose measurement (mass/volume) 118 mg/dL 70-105 Serum or plasma calcium measurement (mass/volume) 9.4 mg/dL 8.5-10.1 Serum or plasma total bilirubin measurement (mass/volu me) 0.8 mg/dL 0.1-1.0 Serum or plasma alkaline phosphatase ian surement (enzymatic activity/volume) 90 U/L 40-136 Serum or plasma aspartate aminotransfera se measurement (enzymatic activity/volume) 22 U/L 5-34 Serum or plasma alanine aminotransferase measurement (enzymatic activity/volume) 35 U/L 0-55 Serum or plasma protein measurement (mass/volume) 7.9 g/dL 6.4-8.2 Serum or plasma albumin measurement (mass/volume) 4.5 g/dL 3.2-4.5 CALCIUM CORRECTED 9.0 mg/dL 8.5-10.1 Magnesium - 11/14/18 00:14 Magnesium 2.5 mg/dL 1.8-2.4 Serum or plasma C reactive protein measu rement (mass/volume) - 11/14/18 00:14 Serum or plasma C reactive protein measurement (mass/v olume) 1.38 mg/dL 0.00-0.50 Manual absolute plasma cell count - 06/03 00:14 Blood monocytes/100 leukocytes 6 % NRG Manual blood segmented neutrophils/100 leukocytes 82 % NRG Manual blood lymphocytes/100 leukocytes 12 % NRG Complete urinalysis with reflex to cultu re - 11/14/18 02:15 Urine color determination YELLOW NRG Urine clarity determination CLEAR NR G Urine pH measurement by test strip 7 5-9 Specific gravity of urine by test strip 1.005 1.016-1.022 Urine protein assay by test strip, semi-quantitative NEGATIVE NEGATIVE Urine glucose detection by automated test strip NE GATIVE NEGATIVE Erythrocytes detection in urine sediment by light micr oscopy NEGATIVE NEGATIVE Urine ketones detection by automated test strip NE GATIVE NEGATIVE Urine nitrite detection by test strip NEGATIVE NEGATIVE Urine total bilirubin detection by test strip NEGA TIVE NEGATIVE Urine urobilinogen measurement by automated test strip (mass/volume) NORMAL NORMAL Urine leukocyte esterase detection by dipstick NEG ATIVE NEGATIVE Automated urine sediment erythrocyte cou nt by microscopy (number/high power field) NONE NRG Automated urine sediment leukocyte count by microscopy (number/high power field) NONE NRG Bacteria detection in urine sediment by light microsco py TRACE NRG Squamous epithelial cells detection in u rine sediment by light microscopy RARE NRG Crystals detection in urine sediment by light microsco py NONE NRG Casts detection in urine sediment by light microscopy NONE NRG Mucus detection in urine sediment by light microscopy NEGATIVE NRG Complete urinalysis with reflex to culture NO NRG Blood lactic acid measurement (moles/vol ume) - 11/14/18 03:09 Blood lactic acid measurement (moles/volume) 1.56 mmol/L 0.50-2.00 Bacterial blood culture - 11/14/18 03:09 Bacterial blood culture NG NRG Bacterial blood culture - 11/14/18 03:25 Bacterial blood culture NG NRG Automated blood complete blood count (he mogram) panel - 11/15/18 05:22 Blood leukocytes automated count (number/volume) 13.8 10*3/uL 4.3-11.0 Blood erythrocytes automated count (number/volume) 4.49 10*6/uL 4.35-5.85 Venous blood hemoglobin measurement (mass/volume) 13.6 g/dL 13.3-17.7 Blood hematocrit (volume fraction) 40 % 40-54 Automated erythrocyte mean corpuscular volume 89 [ foz_us] 80-99 Automated erythrocyte mean corpuscular h emoglobin (mass per erythrocyte) 30 pg 25-34 Automated erythrocyte mean corpuscular h emoglobin concentration measurement (mass/volume) 34 g/dL 32-36 Automated erythrocyte distribution width ratio 12. 3 % 10.0- 14.5 Automated blood platelet count (count/volume) 258 10*3/uL 130-400 Automated blood platelet mean volume measurement 9.9 [foz_us] 7.4-10.4 Whole blood basic metabolic panel - 07/01 05:22 Serum or plasma sodium measurement (moles/volume) 137 mmol/L 135-145 Serum or plasma potassium measurement (moles/volume) 3.6 mmol/L 3.6-5.0 Serum or plasma chloride measurement (moles/volume) 106 mmol/L 98-107 Carbon dioxide 20 mmol/L 21-32 Serum or plasma anion gap determination (moles/volume) 11 mmol/L 5-14 Serum or plasma urea nitrogen measurement (mass/volume ) 10 mg/dL 7-18 Serum or plasma creatinine measurement (mass/volume) 0.71 mg/dL 0.60-1.30 Serum or plasma urea nitrogen/creatinine mass ratio 14 NRG Serum or plasma creatinine measurement w ith calculation of estimated glomerular filtration rate > NRG Serum or plasma glucose measurement (mass/volume) 85 mg/dL 70-105 Serum or plasma calcium measurement (mass/volume) 8.6 mg/dL 8.5-10.1 Magnesium - 11/15/18 05:22 Magnesium 2.2 mg/dL 1.8-2.4 Automated blood complete blood count (he mogram) panel - 11/16/18 05:55 Blood leukocytes automated count (number/volume) 12.9 10*3/uL 4.3-11.0 Blood erythrocytes automated count (number/volume) 4.58 10*6/uL 4.35-5.85 Venous blood hemoglobin measurement (mass/volume) 13.8 g/dL 13.3-17.7 Blood hematocrit (volume fraction) 40 % 40-54 Automated erythrocyte mean corpuscular volume 88 [ foz_us] 80-99 Automated erythrocyte mean corpuscular h emoglobin (mass per erythrocyte) 30 pg 25-34 Automated erythrocyte mean corpuscular h emoglobin concentration measurement (mass/volume) 34 g/dL 32-36 Automated erythrocyte distribution width ratio 11. 7 % 10.0- 14.5 Automated blood platelet count (count/volume) 289 10*3/uL 130-400 Automated blood platelet mean volume measurement 10.1 [foz_us] 7.4-10.4 Whole blood basic metabolic panel - 08/01 05:55 Serum or plasma sodium measurement (moles/volume) 137 mmol/L 135-145 Serum or plasma potassium measurement (moles/volume) 3.4 mmol/L 3.6-5.0 Serum or plasma chloride measurement (moles/volume) 106 mmol/L 98-107 Carbon dioxide 18 mmol/L 21-32 Serum or plasma anion gap determination (moles/volume) 13 mmol/L 5-14 Serum or plasma urea nitrogen measurement (mass/volume ) 9 mg/dL 7-18 Serum or plasma creatinine measurement (mass/volume) 0.62 mg/dL 0.60-1.30 Serum or plasma urea nitrogen/creatinine mass ratio 15 NRG Serum or plasma creatinine measurement w ith calculation of estimated glomerular filtration rate > NRG Serum or plasma glucose measurement (mass/volume) 70 mg/dL 70-105 Serum or plasma calcium measurement (mass/volume) 8.7 mg/dL 8.5-10.1 Magnesium - 11/16/18 05:55 Magnesium 1.8 mg/dL 1.8-2.4 Complete blood count (CBC) with automate d white blood cell (WBC) differential - 11/17/18 05:50 Blood leukocytes automated count (number/volume) 10.7 10*3/uL 4.3-11.0 Blood erythrocytes automated count (number/volume) 4.56 10*6/uL 4.35-5.85 Venous blood hemoglobin measurement (mass/volume) 13.6 g/dL 13.3-17.7 Blood hematocrit (volume fraction) 40 % 40-54 Automated erythrocyte mean corpuscular volume 87 [ foz_us] 80-99 Automated erythrocyte mean corpuscular h emoglobin (mass per erythrocyte) 30 pg 25-34 Automated erythrocyte mean corpuscular h emoglobin concentration measurement (mass/volume) 34 g/dL 32-36 Automated erythrocyte distribution width ratio 11. 9 % 10.0- 14.5 Automated blood platelet count (count/volume) 378 10*3/uL 130-400 Automated blood platelet mean volume measurement 9.9 [foz_us] 7.4-10.4 Automated blood neutrophils/100 leukocytes 76 % 42-75 Automated blood lymphocytes/100 leukocytes 15 % 12-44 Blood monocytes/100 leukocytes 8 % 0-12 Automated blood eosinophils/100 leukocytes 1 % 0-10 Automated blood basophils/100 leukocytes 0 % 0-10 Blood neutrophils automated count (number/volume) 8.1 10*3 1.8-7.8 Blood lymphocytes automated count (number/volume) 1.6 10*3 1.0-4.0 Blood monocytes automated count (number/volume) 0. 9 10*3 0.0-1.0 Automated eosinophil count 0.1 10*3/uL 0 .0-0.3 Automated blood basophil count (count/volume) 0.0 10*3/uL 0.0-0.1 Whole blood basic metabolic panel - 08/31 05:50 Serum or plasma sodium measurement (moles/volume) 138 mmol/L 135-145 Serum or plasma potassium measurement (moles/volume) 3.6 mmol/L 3.6-5.0 Serum or plasma chloride measurement (moles/volume) 107 mmol/L 98-107 Carbon dioxide 15 mmol/L 21-32 Serum or plasma anion gap determination (moles/volume) 16 mmol/L 5-14 Serum or plasma urea nitrogen measurement (mass/volume ) 9 mg/dL 7-18 Serum or plasma creatinine measurement (mass/volume) 0.67 mg/dL 0.60-1.30 Serum or plasma urea nitrogen/creatinine mass ratio 13 NRG Serum or plasma creatinine measurement w ith calculation of estimated glomerular filtration rate > NRG Serum or plasma glucose measurement (mass/volume) 61 mg/dL 70-105 Serum or plasma calcium measurement (mass/volume) 8.9 mg/dL 8.5-10.1 Beta-hydroxybutyric acid measurement - 0 11/17/18 05:50 Beta-hydroxybutyric acid measurement 3.47 mmol/L 0.00-0.27 Blood lactic acid measurement (moles/vol ume) - 11/17/18 08:44 Blood lactic acid measurement (moles/volume) 0.85 mmol/L 0.50-2.00 Encounters ACCT No. Visit Date/Time Discharge Status Pt. Type Provider Facility Loc./Unit Complaint [id number] 05/22/2019 11:45:00 05/22/2019 23:59:5 9 CLS Outpatient JOHN MATAMOROS APRN [facility] [id number] 11/14/2018 03:08:00 019 13:45:00 DIS Outpatient VALORIE RICO, GABRIELLE Nguyen [facility] 4TH DIVERTICULITIS [id number] 12/31/2016 17:57:00 017 20:27:00 DIS Emergency DANIELLA DENT DO a [facility] ER L SIDE CHEST PAIN [id number] 12/05/2015 22:15:00 016 03:14:00 DIS Emergency JOHN DURAND MD [facility] ER FEVER/GENERALIZ ED WEAKNESS [id number] 08/14/2013 10:05:00 014 13:15:00 DIS Inpatient MIRELLA SMART MD [facility] 4TH ACUTE DIVERTICULITIS [id number] 10/06/2012 19:35:00 013 20:20:00 DIS Emergency SHIRA PINO, SANDRO Grady [facility] ER POSS POISON MAYA [id number] 08/30/2012 20:46:00 013 21:53:00 DIS Emergency GENARO EARLY MD [facility] ER EYE IRRITATION [id number] 12/11/2011 13:20:00 Document Registration [id number] 12/10/2011 07:47:00 Document Registration [id number] 09/20/2011 15:13:00 Document Registration [id number] 07/04/2011 19:29:00 Document Registration [id number] 05/09/2011 12:22:00 Document Registration [id number] 02/25/2011 01:17:00 Document Registration [id number] 01/22/2011 07:10:00 Document Registration [id number] 11/14/2010 10:47:00 Document Registration
--- OUTSIDE RECORDS SUMMARY | 2019-07-04 18:01 | XMS REPORT | Continuity of Care Document ---
Author Author [facility] Organization [facility] Address Unknown Phone Unavailable Care Team Providers Care Process Validation Engineer Name Role Phone NO, LOCAL PHYSICIAN PP Unavailable Insurance Providers Payer Name Policy Number Subscriber Name Relationship Self Pay Albaro Garza Self / Same As Patient Advance Directives Directive Response Recor ded Date Advance Directives N 7:52pm Health Care Power of Cargo Service Supervisor N 10/06/12 7:52pm Organ Donor N 10/06/12 7 :52pm Problems No Known Problems or Medical conditions. Family History History Response Recorde d Date/Time Hx Family Cancer N 11/14 11:00am Hx Family Cardiac Disorders Y mother 11/14/10 11:00am Hx Family Myocardial Infarction Y 11/14/10 11:00am Social History History Response Recorde d Date/Time Alcohol Use Denies Use 0 10/06/12 7:52pm Recreational Drug Use N 10/06/12 7:52pm Allergies, Adverse Reactions, Alerts Allergen Type Severity Reaction Last Updated No Known Drug Allergies 04/20/09 Medications Medication Dose Units Route Sig Qty Days Prednisone 40 Mg PO DAILY 4 Olopatadine Hcl (Pataday) 2.5 Ml OP DAILY 30 Prednisone 20 Mg PO DAILY 5 Loratadine 10 Mg PO DAILY 30 Hyoscyamine Sulfate (Hyoscyamine Er 0.375 Mg) 1 Each PO BID 20 Response Recorded Date/Time Status not known [...] 13.3-17.7 Hepatitis A IgM Antibody October 02 2:30am NR - Hepatitis B Core IgM [...] N 6.4-8.2 Urine Amorphous Sediment September 19 4:18pm MOD PAVEL URATES H - Urine [...] 2011 4:18pm NEGATIVE - Urine Leukocyte Esterase September 19 4:18pm NEGATIVE - Urine Mucus September 20, 2011 4:18pm SMALL H - Urine Nitrite September 20, 2011 4:18pm NEGATIVE - Urine Protein September 20, 2011 4:18pm NEGATIVE - Urine RBC September 20, 2011 4:18pm NONE /HPF - Urine Specific [place] September 20, 2011 4:18p m 1.020 - [...] Procedures Procedure Code Date COLONOSCOPY AND BIOPSY 20180 01/22/11 COLONOSCOPY AND BIOPSY 58712 12/11/11 Blood Culture 11/15/10 Ova and Parasites 09/14 Urine Culture 09/20/11 Encounters Encounter Location Date/ Time Registered Emergency Room [facility] 10/06/12 7:35pm Departed Emergency Room [facility] 08/30/12 8:46pm Discharged Inpatient [facility] 11/14/10 10:47am
[2019-07-04] MEDS ORDERED: RX-CEPHALEXIN (KEFLEX) 250 MG CAP PPK#4 PO STA (18:41)
[2019-07-04] MEDS ORDERED: RX-HYDROCODONE/APAP 5/325 MG #4 TAB PK PO PRN (18:45)
[2019-07-04] MEDS ORDERED: TETANUS,DIPTH,PERTUSS P/F (BOOSTRIX) 0.5 ML VIAL IM ONE (18:45)
--- NOTE | 2019-07-04 18:48 | ED Upper Extremity ---
General Chief Complaint: Laceration Stated Complaint: LEFT HAND LAC Nursing Triage Note: STATES HE CUT HIS LEFT HAND BETWEEN HIS THUMB AND 2ND FINGER WHILE CUTTING UP A HOG. Nursing Sepsis Screen: No Definite Risk Source: patient Exam Limitations: no limitations History of Present Illness Date Seen by Provider: Jul 04, 2019 Time Seen by Provider: 18:43 Initial Comments Cut to the palm of the left hand from butchering a period in preparation for adventism tomorrow. Tetanus was not updated. Onset: just prior to arrival Severity: moderate Pain/Injury Location: left hand Modifying Factors: Worse With Movement Allergies and Home Medications Allergies Coded Allergies: No Known Drug Allergies (Unverified , 04/20/09) Home Medications No Active Prescriptions or Reported Meds Patient Home Medication List Home Medication List Reviewed: Yes Review of Systems Constitutional: see HPI EENTM: see HPI Respiratory: no symptoms reported Cardiovascular: no symptoms reported Genitourinary: no symptoms reported Musculoskeletal: no symptoms reported Skin: see HPI Psychiatric/Neurological: No Symptoms Reported Past Nbckhyc-Ryyofj-Tvclvz Hx Patient Social History Alcohol Use: Denies Use Alcohol Beverage of Choice: Beer, Cheap Liquor Recreational Drug Use: No Smoking Status: Never a Smoker Recent Foreign Travel: No Contact w/Someone Who Travel: No Recent Infectious Disease Expo: No Recent Hopitalizations: No Immunizations Up To Date Tetanus Booster (TDap): Unknown PED Vaccines UTD: No Seasonal Allergies Seasonal Allergies: Yes Past Medical History Surgeries: Yes (COLONOSCOPIES) Respiratory: No Currently Using CPAP: No Currently Using BIPAP: No Cardiac: No Neurological: No Reproductive Disorders: No Genitourinary: No Gastrointestinal: Yes Diverticulosis Musculoskeletal: No Endocrine: No HEENT: No Cancer: No Psychosocial: No Integumentary: Yes (ALLERGY TO POISON MAYA) Blood Disorders: No Adverse Reaction/Blood Tranf: No Family Medical History Patient reports no known family medical history. No Pertinent Family Hx Physical Exam Vital Signs Vital Signs - First Documented 07/04/19 18:00 Temp 36.6 Pulse 101 Resp 16 B/P (MAP) 146/90 (108) Pulse Ox 96 O2 Delivery Room Air Capillary Refill : Less Than 3 Seconds Height, Weight, BMI Height: 5'7.00" Weight: 168lbs. 9.0oz. 76.103513ei; 26.00 BMI Method:Stated General Appearance: WD/WN, no apparent distress Respiratory: no respiratory distress, no accessory muscle use Shoulder: normal inspection, non-tender Elbow/Forearm: normal inspection, non-tender, Left Wrist: Yes normal inspection, Yes non-tender Hand: Left, laceration (4 cm laceration with depth to the subcutaneous tissue that nearly parallels the thenar crease of the palm of the left hand. He is able to flex the thumb pointer and middle ring and little finger. Sensation distally of the fingertips is normal. No foreign bodies.) Neurologic/Psychiatric: alert, normal mood/affect, oriented x 3 Skin: normal color, warm/dry Procedures/Interventions Wound Location: Upper Extremities Wound Length (cm): 4 Wound's Depth, Shape: linear Wound Explored: clean Irrigated w/ Saline (ccs): 100 Anesthesia: 1% Lidocaine Volume Anesthetic (ccs): 5 Suture: Prolene Suture Size: 4-0 Number of Sutures: 1 (1 continuous suture) Layer Closure?: 1 Number Deep Layer Sutures: 0 Progress/Results/Core Measures Results/Orders My Orders Orders - JASMYN HANCOCK APRN Dipht,Angelia(Acell),Tet Adult (Boostrix (07/04/19 18:45) Rx-Hydrocodone/Apap 5-325 Mg (Rx-Vicodin (07/04/19 18:45) Rx-Cephalexin Capsule (Rx-Keflex Capsule (07/04/19 18:41) Vital Signs/I&O 07/04/19 18:00 Temp 36.6 Pulse 101 Resp 16 B/P (MAP) 146/90 (108) Pulse Ox 96 O2 Delivery Room Air Blood Pressure Mean: 108 Departure Impression Primary Impression: Laceration of hand Qualified Codes: S61.412A - Laceration without foreign body of left hand, initial encounter Disposition: HOME, SELF-CARE Condition: Stable Departure-Patient Inst. Decision time for Depature: 18:46 Referrals: NO,LOCAL PHYSICIAN (PCP) Primary Care Physician Patient Instructions: Laceration Repair With Stitches (DC) Add. Discharge Instructions: 1. The tetanus shot may cause you to have a low-grade fever and some body aches tomorrow as she developed community. Do not be surprised U have these symptoms they will go away in a few days. Keep this covered with a bandage or dressing of some sort to keep it from getting dirty. You can take the bandage off to shower, then you should reapply it. Antibiotics and pain medication as directed. Return to ER for redness swelling or sign of infection. Return to the emergency room otherwise in 10 days to have the stitches removed. You can shower but do not soak this in water such as a hot tub, dish sink All discharge instructions reviewed with patient and/or family. Voiced understanding. Scripts No Active Prescriptions or Reported Meds JASMYN HANCOCK APRN Jul 04, 2019 18:48
== END 2019-07-04 18:53 | disposition home or self-care (01) ==
LOC: EDUNIT# 17:54 → ER 17:57
DX: S61.412A Laceration without foreign body of left hand, initial encounter (principal); Z23 Encounter for immunization; W26.8XXA Contact with other sharp object(s), not elsewhere classified, initial encounter
CPT/HCPCS: 12002; 90471; 90715

== ENCOUNTER 2019-07-13 11:51 | Emergency (ER) | payer SELFPAY ==
[~2019-07-13] VITALS: Ht 162 cm; Wt 86.3 kg
--- OUTSIDE RECORDS SUMMARY | 2019-07-13 12:27 | XMS REPORT ---
Author Author [employer]. Organization [facility] Address [address] [address] Care Team Providers Care Social Director Name Role Phone NO, LOCAL PHYSICIAN Unavailable Unavailable BRYANT LEAL Unavailable Unavailable NO, LOCAL PHYSICIAN Unavailable Unavailable NO, LOCAL PHYSICIAN Unavailable Unavailable Apple DEVAN Unavailable Migration, Doctor Unavailable Unavailable Migration, Doctor Unavailable Unavailable Migration, Doctor Unavailable Unavailable Migration, Doctor Unavailable Unavailable Migration, Doctor Unavailable Unavailable LADARIUS RICO, JOHN Carrasco Unavailable Unavailable VALORIE RICO, GABRIELLE Nguyen Unavailable Unavailable BERRY RICO, MIRELLA Bey Unavailable Unavailable FILIPE DO, DANIELLA K Unavailable Unavailable BERRY RICO, MIRELLA Bey Unavailable Unavailable JOHN MATAMOROS Unavailable Unavailable NO, LOCAL PHYSICIAN PCP Unavailable BERTRAM RICO, CHARBEL Jennings Unavailable Unavailable JASMYN HANCOCK APRN Unavailable Unavailable Allergies Normalized Allergy Reported Date of Reaction(s) Care Provider Facility Allergy Type classification allergen Allergy Onset DA (13 Unclassified No Known Drug 04-20-2009 - no information MIRELLA SMART Not Available sources.) Allergies MD ([id number]) Medications Medication Ingredient Drug Dose Dates Status Sig Sig Care Class(es) (Normalized) (Original) Provid er no Cephalexin Cephalospor 02-26-20 Complete no Cephalexi n no information in 11 d information Monohydrate name (1 source.) Antibacteri Discontinued (no al 1 ORAL Three phone) Times A Day February 25, 2011 no Hydrocodone no 02-26-20 Complete no Hydrocodone n o information Bitartrate/ information 11 - d information Bi tartrate/I name (1 source.) Ibuprofen 09-20-19 buprofen (no 12 Discontinued phone) 1 - 2 OPTHALMIC Q 4 - 6 Hrs Prn February 25, 2011 1:45am September 20, 2011 FOR PAIN no RABEprazole Proton Pump 11-15-19 Complete no Rabepraz ole no information Inhibitor 11 d information Sodium name (1 source.) Discontinued (no 20 ORAL phone) Daily November 14, 2010 Problems Active Problems Problem Normalized Date of Normalized Normalized Provider Fac ility Classification Problem(s) Problem Problem Problem Sta tus Onset/Resoluti Duration on Fluid and Acidosis 07-05-2019 - Episodic Active GABRIELLE EUGENE [facility] electrolyte Translations: [facility] disorders (3 [facility] - sources[facility] ketoacidosis] [place] ([address]809) Diverticulosis Diverticulitis 07-05-2019 - Chronic Active IRA SMART [facility] Via and of colon , MD [facility] diverticulitis (without Hospital - (11 sources.) mention of [place] hemorrhage) (89212) Translations: [ DVTRCLI OF LG INT W/O PERFORATION OR ABS, Diverticulitis of intestine] Genitourinary Dysuria 07-05-2019 - Episodic Active GABRIELLE PAULINO [facility] Via symptoms and Translations: MD [facility] ill-defined [ Dysuria] Hospital - conditions (7 [place] sources.) (00938) Other Elevated 07-05-2019 - Episodic Active DANIELLA DENT DO [facility] Via circulatory blood-pressure [facility] disease (5 reading, Hospital - sources.) without [place] diagnosis of (74658) hypertension Fever of Fever, 07-05-2019 - Episodic Active JOHN [facility] V ia unknown origin unspecified [facility] (8 sources.) Hospital - [place] (18587) Headache; Headache 07-05-2019 - Episodic Active JOHN [facility] Via including MD [facility] migraine (4 Hospital - sources.) [place] (36139) Essential Intermittent Chronic Active LOCAL NO [facility] Via hypertension hypertension [facility] (1 source.) Hospital (94519) Open wounds of Laceration of Episodic Active LOCAL NO [facility] Via extremities (1 hand [facility] source.) Hospital (84644) Inflammation; Other chronic Chronic Active GENARO Not Available infection of allergic BRUEGGEMANN , (31574) eye (except conjunctivitis that caused by tuberculosis or sexually transmitteddis ease) (2 sources.) Other Personal 07-05-2019 - Episodic Active DANIELLA DENT DO [facility] Via gastrointestin history of [facility] al disorders other diseases Hospital - (5 sources.) of the [place] digestive (94894) system Past or Other Problems Problem Normalized Date of Normalized Normalized Provider Fac ility Classification Problem(s) Problem Problem Problem Sta tus Onset/Resoluti Duration on Allergic Contact Episodic Completed SANDRO Not Available reactions (1 dermatitis and ALVAREZ SILVA (15826) source.) other eczema, unspecified cause Other skin Rash and other Episodic Completed SANDRO Not Av ailable disorders (1 nonspecific ALVAREZ SILVA (80263) source.) skin eruption Other eye Redness or Episodic Completed GENARO Not Availab le disorders (2 [facility] , ([address]87) sources.) eye Administrative Social Episodic Completed MIRELLA SMART [facility] Via /social maladjustment , MD [facility] admission (4 Hospital - sources.) [place] (83568) Procedures The data below is from unstructured sourcesNo known history of procedures. No Known procedures No Known procedures No Known procedures No Known procedures No Known procedures No Known procedures No Known procedures No Known procedures No Known procedures No Known proceduresNo procedure information available.No procedure information available. Immunizations Normalized Immunization Date Notes Care Provider Facili ty Immunization tetanus toxoid, 07-04-2019 - no information no name [facility] Michelle O[facility]o reduced diphtheria 07-04-2019 [facility] g toxoid, and (55812) acellular pertussis vaccine, adsorbed Results The data below is from unstructured sources No Results No Results No Results No Results No Results No Results No Results No Results No Results No Results No ResultsNo known relevant diagnostic tests and/or laboratory data.No known relevant diagnostic tests and/or laboratory data. Vital Signs The data below is from unstructured sources Vital Response Date/Time Temperature (Fahrenheit) 99.1 degree s F (97.6 - 99.5) 12/05/2015 10:31pm Temperature (Calculated Celsius) 37. 23833 degrees C (36.4 - 37.5) 12/05/2015 10:31pm [...] inches 12/05/2015 10:31pm Height (Calculated Centimeters) 157. 682759 cm 12/05/2015 10:31pm Weight (Pounds) 180 pounds 12/05/2015 10:31pm Weight (Calculated Kilograms) 81.646 627 kilograms 12/05/2015 10:31pm Capillary Refill Capillary Refill Less Than 3 Seconds 12/05/2015 10:31pm Height 5 ft 2 in Weight 180 lb Body Mass Index 32.9 kg/m^2 Vital Response Date/Time Temperature (Fahrenheit) 98.2 degree s F (97.6 - 99.5) 12/31/2016 6:01pm Temperature (Calculated Celsius) 36. 31078 degrees C (36.4 - 37.5) 12/31/2016 6:01pm [...] inches 12/31/2016 6:01pm Height (Calculated Centimeters) 157. 494961 cm 12/31/2016 6:01pm Height Method Stated 6:01pm Weight (Pounds) 180 pounds 12/31/2016 6:01pm Weight (Ounces) 8.0 oz 0 12/31/2016 6:01pm Weight (Calculated Grams) 60569.627 gm 12/31/2016 6:01pm Weight (Calculated Kilograms) 81.873 424 kilograms 12/31/2016 6:01pm Calculated BMI 32.92 6:01pm Weight Method Stated 6:01pm Capillary Refill Capillary Refill Less Than 3 Seconds 12/31/2016 6:01pm Vital Reading Result Col lection Date/Time Vital Reading Result Col lection Date/Time Interventions No Information Plan of Treatment Normalized Care Care Detail Care Activity Date Care Provider F acility Activity Patient Education Laceration Repair no information LOCAL NO [facility] [facility] With Stitches (DC) [facility] ([address]) Patient referral no information no information [facility]AL [facility] ([address]) Goals Patient Goal Desired Goal no information no information Social History Normalized Code Original Code Date Value Tobacco smoking status Tobacco smoking status no information Never smoked tobacco NHIS NHIS (finding) no information no information 08-11-2013 Occasionally Us es no information no information 08-11-2013 No no information no information 07-04-2019 Never a Smoker Sex Assigned At Sex Assigned At no information M kwesi Functional Status The data below is from unstructured sourcesNo functional status results.No functional status information available.No functional status information available.No Functional Status information availableNo Functional Status information available Mental Status The data below is from unstructured sourcesNo Mental Status Information Available Encounters Encounter Normalized Encounter Encounter Diagnosis Care Provi rudolph Organization Date Type 07-04-2019 Emergency department no information (no phone) [facility] patient visit Hospital (no phone) 07-04-2019 07-04-2019 Emergency department no information CHARBEL BURDEN MD (no [facility] - patient visit phone) [facility] 07-04-2019 [facility] (no phone) (no phone) 11-13-2018 Emergency department no information no name (no madonna ne) no organization name patient visit (no phone) 12-31-2016 Emergency department no information DANIELLA DENT DO (no [facility] - patient visit phone) [facility] 12-31-2016 (no phone) 12-05-2015 Emergency department no information JOHN MARTE MD [facility] - patient visit (no phone) [facility] 12-05-2015 (no phone) 09-20-2011 Emergency department no information no name (no madonna ne) no organization name - patient visit (no phone) 09-20-2011 11-14-2018 Evaluation and no information no name (no phone) n o organization name - management of (no phone) 11-17-2018 inpatient 11-13-2018 Evaluation and no information GABRIELLE EUGENE MD (no [facility] - management of phone) [facility] 11-17-2018 inpatient (no phone) 08-14-2013 Evaluation and no information no name (no phone) n o organization name - management of (no phone) 08-16-2013 inpatient 08-14-2013 Evaluation and no information no name (no phone) n o organization name - management of (no phone) 08-16-2013 inpatient 05-22-2019 Patient encounter no information JOHN MATAMOROS ( no [facility] phone) [facility] (no phone) 11-13-2018 Patient encounter no information no name (no phone) no organization name - procedure (no phone) 11-17-2018 12-31-2016 Patient encounter no information no name (no phone) no organization name procedure (no phone) Patient encounter no information (no phone) [facility] (no phone) Medical Equipment The data below is from unstructured sourcesNo Medical Equipment Information available Payers Normalized Payer Value Self-pay no information ([id number]) Evaluation note Note Type Note Facility Evaluation No Assessments Information Available [facility] note [facility] ([id number]) Advance Directives Directive Response Recor ded Date/Time Advance Directives No 10:31pm Health Care Power of Flux Mixer No 12/05/15 10:31pm Organ Donor No 12/05/15 10:31pm Resuscitation Status Full Code 12/05/15 10:31pm Directive Response Recor ded Date Advance Directives N 8:57pm Health Care Power of Flux Mixer N 08/30/12 8:57pm Organ Donor N 08/30/12 8 :57pm Directive Response Recor ded Date Advance Directives N 7:52pm Health Care Power of Flux Mixer N 10/06/12 7:52pm Organ Donor N 10/06/12 7 :52pm Directive Response Recor ded Date/Time Advance Directives No 6:01pm Health Care Power of Flux Mixer No 12/31/16 6:01pm Organ Donor No 12/31/16 6:01pm Resuscitation Status Full Code 12/31/16 6:01pm Advance Directive Response Recorded Date/Time Advance Directives No [facility] 2019 6:09pm Health Care Power of Flux Mixer No December 31, 2016 6:01pm Organ Donor No December 31, 2016 6:01pm Resuscitation Status Full Code July 04, 2019 6:09pm Discharge Instructions No hospital discharge instructions.No hospital discharge instruction information available. Summary Purpose [employer] Submission Chief Complaint and Reason for Visit Chief Complaint Laceration Reason for Visit [id number] Additional Source Comments This clinical document has been generated using [employer] software that has been certified by the Office of the National Coordinator for Health Information Technology (ONC 15.99.04.3023.Diam.31.00.0.998464) and the National Committee for Supervisor Marble (NCQA, as an eMeasure certified technology). FOR [...] BASED ON T HE PRIMARY CLINICAL RECORDS. [employer]. provides no warranty or guara ntee of the accuracy or completeness of information in this document.The followi ng information is based on time limited clinical information UNRECOGNIZED CONTENT PROVIDED BELOW FOR UNRECOGNIZED SECTION REASON FOR VISIT [id number]
--- OUTSIDE RECORDS SUMMARY | 2019-07-13 12:28 | XMS REPORT | Continuity of Care Document ---
Author Organization Unknown Address Unknown Phone Unavailable Allergies Active Description Code Type Severity Reaction Onset Reported/Identified Relationship to Patient Clinical Status Yes No Known Drug Allergies [id number] Drug Allergy Mild N/A 04/20/2009 Medications There [...] Z87.19 PERSONAL HISTORY OF OTHER DISEASES OF 12/31/2016 Ot V72.84 EXA M PRE- OPERATIVE NOS 01/02/2017 FILIPE DO, DANIELLA K Ot R03.0 ELEVATED BLOOD-PRESSURE READING, W/O EDNA 01/02/2017 FILIPE DO, DANIELLA K Ot R07.89 OTHER CHEST PAIN 01/02/2017 FILIPE DO, DANIELLA K Ot Z87.19 PERSONAL HISTORY OF OTHER DISEASES OF 01/02/2017 FILIPE DO, DANIELLA K Ot R03.0 [...] GABRIELLE EUGENE MD Ot R30. 0 DYSURIA 07/09/2019 JASMYN HANCOCK DIRECTOR PERIOPERATIVE Ot S61.412A LACERATION WITHOUT FOREIGN BODY OF LEFT 07/09/2019 JASMYN HANCOCK DAYO Ot W26.8XXA CONTACT WITH OTHER SHARP OBJECT(S), NEC, 07/09/2019 JASMYN HANCOCK DAYO Ot Z23 ENCOUNTER FOR IMMUNIZATION 07/10/2019 JASMYN HANCOCK DAYO Ot S61.412A LACERATION WITHOUT FOREIGN BODY OF LEFT 07/10/2019 JASMYN HANCOCK DAYO Ot W26.8XXA CONTACT WITH OTHER SHARP OBJECT(S), NEC, 07/10/2019 JASMYN HANCOCK DAYO Ot Z23 ENCOUNTER FOR IMMUNIZATION Procedures There is no data. Results Test [...] INFLUENZA A AND B ANTIGENS BY IA NR Comprehensive metabolic panel - 12/05/15 23:25 Serum [...] plasma alkaline phosphatase ian surement (enzymatic activity/volume) 110 U/L 40-136 Serum [...] Status Pt. Type Provider Facility Loc./Unit Complaint [id number] 05/22/2019 11:45:00 05/22/2019 23:59:5 9 CLS Outpatient JOHN MATAMOROS APRN [facility] [id number] 07/04/2019 17:57:00 020 18:53:00 DIS Outpatient JASMYN HANCOCK APRN [facility] ER LEFT HAND LAC [id number] 11/14/2018 03:08:00 08/05/2 019 13:45:00 DIS Inpatient VALORIE RICO, GABRIELLE Nguyen [facility] 4TH DIVERTICULITIS [id number] 12/31/2016 17:57:00 017 20:27:00 DIS Emergency FILIPE , DANIELLA Bey Michelle a [facility] ER L SIDE CHEST PAIN [id number] 12/05/2015 22:15:00 016 03:14:00 DIS Emergency LADARIUS RICO, JOHN Carrasco [facility] ER FEVER/GENERALIZ ED WEAKNESS [id number] 08/14/2013 10:05:00 014 13:15:00 DIS Inpatient BERRY RICO, MIRELLA Bey [facility] 4TH ACUTE DIVERTICULITIS [id number] 10/06/2012 19:35:00 013 20:20:00 DIS Emergency SANDRO KING [facility] ER POSS POISON MAYA [id number] 08/30/2012 20:46:00 013 21:53:00 DIS Emergency NNEKA RICO, GENARO Driscoll [facility] ER EYE IRRITATION [id number] 12/11/2011 13:20:00 Document Registration [id number] 12/10/2011 07:47:00 Document Registration [id number] 09/20/2011 15:13:00 Document Registration [id number] 07/04/2011 19:29:00 Document Registration [id number] 05/09/2011 12:22:00 Document Registration [id number] 02/25/2011 01:17:00 Document Registration [id number] 01/22/2011 07:10:00 Document Registration [id number] 11/14/2010 10:47:00 Document Registration
[2019-07-13 12:55] VITALS: BP 158/83
== END 2019-07-13 12:55 | disposition home or self-care (01) ==
LOC: EDUNIT# 11:51 → ER 11:53
DX: S61.412D Laceration without foreign body of left hand, subsequent encounter (principal); W26.8XXD Contact with other sharp object(s), not elsewhere classified, subsequent encounter